=== PATIENT | male | born 1950 | race Caucasian/White ===

== ENCOUNTER 2020-04-08 23:22 | Inpatient (IN) ==
[2020-04-08] MEDS ORDERED: SODIUM CHLORIDE 0.9% 1000ML 500 ML IV ONE (23:51)
--- NOTE | 2020-04-08 23:58 | Emergency Department Note ---
Impression & Plan Sepsis, Acidosis, lactic, Hypomagnesemia ED Provider Note Name: MANDEEP TEE Age: 69 Sex: M Arrives Via: Walk-In Informant: Patient, ED Provider: Ace Hall MD Chief Complaint: Illness Impression: Sepsis Lactic Acidosis Hypomagnesemia Medical Decision Makin yr old male with DMII, CAD amongst other medical issues who recently had bilateral leg vein striping. He arrives with rapid onset fevers, chills, cough, abdominal cramping, diarrhea, amongst others. Labs with cultures sent and isolation procedures followed (pending covid results). While noting he is already feeling better he was agreeable to work-up. CXR clear, ekg unremarkable, labs with normal WBC though elevated lactate and very low mag. He was given gentle hydration with 1.5L IV fluids which was not full 30ml/kg IV fluids as he is cardiac patient already on lasix and need to avoid fluid overload in this patient. Vanco and Levaquin ordered for broad spectrum coverage (PNC allergy). He was given 2 Gm IV magnesium. Suspect chronic lasix usage along with worsening diarrhea last few days lead to hypomag, which explains how weak he is feeling. He was feeling well on repeat exams and hospitalist in to evaluate further for management. Covid returned negative. With normal CXR, clear urine. Suspect may be early bacteremic from recent procedures? Prior Medical Record and Triage/Nursing Notes reviewed by Me Additional history obtained from Chart Differentials:Viral syndrome, Covid, otitis, pharyngitis, pneumonia, influenza, meningitis, urinary tract infection, sepsis, bacteremia, as well as other pathologies. Vital Signs: reviewed and remarkable for fever, tachy Interventions: saline lock, nss bolus 1.5L bolus, levaquin 750mg IV, vanco 2.75gm IV Labs:Reviewed and remarkable for elevated lacate Imaging:X ray results are stated below per my interpretation: Chest: 1 view: No infiltrate, no effusion, normal cardiac border. EKG:Per My Interpretation: Indication Sepsis: Sinus Tach 106 bpm, qtc 458. Prolonged LA consistent with 1st av block. No Ectopy. No Ischemia. Compared to EKG 07/16/19, no significant changes. Cardiac/Tele Monitoring: Cardiac Monitoring: An Order was placed for continuous cardiac monitoring. The monitor shows a rate of 110 with a sinus tach rhythm. Consults:Dr Vincent ANDERSON Hospitalist Plan: Disposition:Hospitalization. Condition: Good Blood pressure:Normal.No Referral necessary History of Present Illness:69 / M arrives for evaluation of illness. History DMII, CAD, amongst others arrives for evaluation of feeling ill. Notes several days of mild abdominal cramping and periodica diarrhea. This evening sudden/rapid onset fevers, chills, non-productive cough, fatigue, and body aches. Notes he took tylenol/motrin at 9pm (2.5 hrs [employer]). Symptoms gradually improving currently. Denies syncope, headache, shortness of breath, chest pain, back pain, urinary symptoms, leg swelling (beyond normal), calf pain, nausea, vomiting, rashes, nor other symptoms. No sick contacts but has been in/out of docs office last few weeks for vein surgeries on legs. Meds this evening seem to be improving symptoms. Nothing seems to make worse. Chronically on Doxycycline for acne. Notes BSG over last few days has been normal in 100s. He denies any current abdominal pain. ROS: See above HPI for pertinent positives & negatives. A total of 10 systems reviewed and were otherwise negative. Past Medical History:DMII, CAD, Acne, HTN, DLP, Depression, GERD, Ascending Aortic Aneurysm Past Surgical History:Colon Surgery Family History:See Below Social History:See Below. Previous many decades smoker Home Medications:See Below Allergies:PNC Vitals:Blood Pressure: 139/77, Pulse 109, RR 18, T 38.1C, O2 96% on RA Physical Exam: GENERAL: Patient is well appearing and in mild distress. Mild warm to touch EYES: No scleral icterus, unremarkable pupils. ENT: Mucous membranes moist, no nasal congestion. NECK: No masses appreciated, nomeningismus, trachea is midline. RESPIRATORY: No dyspnea. Clear to auscultation and equal bilaterally. No wheeze, no rhonchi. CARDIOVASCULAR: Mild tachy.No murmurs, rubs, gallops appreciated. GASTROINTESTINAL: Abdomen soft, non-tender, no peritonitis.Bowel sounds positive.No masses appreciated. BACK: No midline tenderness, no CVA tenderness EXTREMITIES: Normal motion all extremities, no cyanosis, no edema. NEUROLOGIC: Alert and oriented, no acute motor or sensory deficits, no focal weakness, cranial nerves grossly intact. SKIN: No rash, no jaundice, no diaphoresis. PSYCH: Appropriate GCS: 15 ED Course: Times/Reassessments: Feeling better with IV fluids, no respiratory issues, comfortable, agreeable to hospitalization Ace Hall MD Past Med/Surg History Social History Preferred Language: Armenian Communication Ability: Effective Visual Impairment: No Limitations Hearing Ability: Normal marital status: Current Living Situation: Spouse current occupational status: retired Feels Safe at Home: Yes Smoking Status: Never smoker Tobacco Type: cigarettes, pipe and cigars ; Age Started Using Tobacco: 18 ; Age Quit Using Tobacco: 62 ; Number of Years Since Quit: 7 ; Second Hand Exposure: No ; Hx Alcohol Use: No Hx Substance Use: No Childhood Exposure to Second-Hand Smoke: Yes Dental Care, Regularly: No Physical Activity Frequency: Does not Exercise Seatbelt Use: always Sunscreen Use: No Allergies Allergies Allergy/AdvReac Type Severity Reaction Status Date / Time Penicillins Allergy Unknown Unknown Verified 04/09/20 02:31 Home Meds Home Medications Medication Instructions Recorded Confirmed aspirin 81 mg tablet,delayed 81 mg PO DAILY tab 04/30/19 04/09/20 release ferrous sulfate [Slow Fe] 142 mg PO DAILY 07/16/19 04/09/20 hydrocortisone 1 appln TOPICAL WK 07/16/19 04/09/20 insulin NPH isoph U-100 human 100 52 units SUBCUT BID ml 03/24/20 04/09/20 unit/mL subcutaneous suspension insulin regular human 100 unit/mL 20 units SUBCUT TIDM ml 03/24/20 04/09/20 injection solution nitroglycerin 0.4 mg SL DIRECTED PRN 04/09/20 04/09/20 Previous Rx's Medication Instructions Recorded irbesartan 300 mg tablet 300 mg PO DAILY #90 tab 06/24/19 clopidogrel 75 mg tablet 75 mg PO DAILY #90 tab 07/06/19 omeprazole magnesium 20 mg 20 mg PO DAILY #90 cap 07/06/19 capsule,delayed release clindamycin phosphate 1 % topical 1 appln TOP DAILY #60 gm 07/30/19 gel Compression stockings #2 ea 08/05/19 metformin 1,000 mg tablet 1,000 mg PO BID #180 tab 09/02/19 furosemide 40 mg tablet 40 mg PO BID #180 tab 09/15/19 ketoconazole 2 % shampoo 1 appln TOPICAL Q OTHER DAY #120 ml 11/16/19 atorvastatin 40 mg tablet 40 mg PO DAILY #90 tab 12/30/19 amitriptyline 50 mg tablet 75 mg PO HS #135 tab 01/13/20 doxycycline monohydrate 100 mg 100 mg PO DAILY #90 tab 02/03/20 tablet metoprolol tartrate 50 mg tablet 50 mg PO BID #180 tab 02/08/20 blood sugar diagnostic #300 ea 02/24/20 lancets 33 gauge #300 ea 02/24/20 pregabalin 50 mg capsule 50 mg PO BID #60 cap 03/24/20 isosorbide mononitrate 120 mg 60 mg PO DAILY #45 tab 04/01/20 tablet,extended release 24 hr Results & Data (ED) Vital Signs Vital Signs - 24 hr 04/08/20 23:35 04/09/20 02:13 04/09/20 03:52 Temperature 38.1 C H 38.1 C H Temperature Source Oral Oral Pulse Rate 109 H Pulse Rate [Apical] 121 H 122 H Pulse Rhythm [Apical] Regular Pulse Strength [Apical] Normal Respiratory Rate 18 18 16 Respiratory Depth Normal Blood Pressure 139/77 Blood Pressure [Right Arm] 131/66 154/69 H Blood Pressure Mean 97 Blood Pressure Mean [Right Arm] 87 97 Pulse Oximetry 96 96 96 Oxygen Delivery Method Room Air Room Air Room Air Sepsis Recent Fever Within 48 Hours No Sepsis New/Unexplained Change in Mental Status No Sepsis Action Taken by Nursing No Action Required 04/09/20 04:04 Temperature Temperature Source Pulse Rate Pulse Rate [Apical] 119 H Pulse Rhythm [Apical] Pulse Strength [Apical] Respiratory Rate 18 Respiratory Depth Blood Pressure Blood Pressure [Right Arm] 105/66 Blood Pressure Mean Blood Pressure Mean [Right Arm] 79 Pulse Oximetry 95 Oxygen Delivery Method Room Air Sepsis Recent Fever Within 48 Hours Sepsis New/Unexplained Change in Mental Status Sepsis Action Taken by Nursing Laboratory Data Result diagrams: 04/09/20 00:08 04/09/20 00:08 Lab Results 04/09/20 04/09/20 04/09/20 Range/Units 00:08 00:08 00:08 WBC 8.29 (4.8-10.8) K/uL RBC 4.51 L (4.7-6.1) M/uL Hgb 12.1 L (14.0-18.0) g/dL Hct 37.5 L (42-52) % MCV 83.1 (80-100) fL MCH 26.8 (25-34) pg MCHC 32.3 (32-36) g/dL RDW Std Deviation 47.3 H (36.4-46.3) fL RDW Coeff of Sho 15.6 H (11.5-14.5) % Plt Count 167 (130-400) K/uL MPV 11.5 H (7.4-10.4) fL Immature Gran % (Auto) 0.4 % Neut % (Auto) 79.6 % Lymph % (Auto) 9.7 % [place] % (Auto) 8.8 % Eos % (Auto) 1.4 % Baso % (Auto) 0.1 % Neut # (Auto) 6.60 H (1.4-6.5) K/uL Lymph # (Auto) 0.80 L (1.2-3.4) K/uL [place] # (Auto) 0.73 H (0.11-0.59) K/uL Eos # (Auto) 0.12 (0-0.5) K/uL Baso # (Auto) 0.01 (0-0.2) K/uL Immature Gran # (Auto) 0.03 H (0.00-0.02) K/uL PT 12.2 H (9.0-12.0) Seconds INR 1.2 H (0.9-1.1) Sodium (136-145) mmol/L Potassium (3.5-5.1) mmol/L Chloride (98-107) mmol/L Carbon Dioxide (21-32) mmol/L Anion Gap (3-11) BUN (7-18) mg/dl Creatinine (0.6-1.4) mg/dl Est Cr Clr Drug Dosing ml/min Est GFR ( Amer) Est GFR (Non-Af Amer) BUN/Creatinine Ratio (10-20) Glucose (70-99) mg/dl Lactate 2.6 H* (0.4-2.0) mmol/L Calcium (8.5-10.1) mg/dl Magnesium (1.8-2.4) mg/dl Total Bilirubin (0.2-1) mg/dl Direct Bilirubin (0-0.2) mg/dl AST (15-37) U/L ALT (12-78) U/L Alkaline Phosphatase (45-117) U/L Troponin I (0-0.045) ng/ml Total Protein (6.4-8.2) gm/dl Albumin (3.4-5.0) gm/dl Lipase (73-393) U/L COVID-19 PCR (Negative) SARS-CoV-2 RNA (RT-PCR) 04/09/20 04/09/20 04/09/20 Range/Units 00:08 01:30 01:55 WBC (4.8-10.8) K/uL RBC (4.7-6.1) M/uL Hgb (14.0-18.0) g/dL Hct (42-52) % MCV (80-100) fL MCH (25-34) pg MCHC (32-36) g/dL RDW Std Deviation (36.4-46.3) fL RDW Coeff of Sho (11.5-14.5) % Plt Count (130-400) K/uL MPV (7.4-10.4) fL Immature Gran % (Auto) % Neut % (Auto) % Lymph % (Auto) % [place] % (Auto) % Eos % (Auto) % Baso % (Auto) % Neut # (Auto) (1.4-6.5) K/uL Lymph # (Auto) (1.2-3.4) K/uL [place] # (Auto) (0.11-0.59) K/uL Eos # (Auto) (0-0.5) K/uL Baso # (Auto) (0-0.2) K/uL Immature Gran # (Auto) (0.00-0.02) K/uL PT (9.0-12.0) Seconds INR (0.9-1.1) Sodium 136 (136-145) mmol/L Potassium 3.8 (3.5-5.1) mmol/L Chloride 103 (98-107) mmol/L Carbon Dioxide 23 (21-32) mmol/L Anion Gap 10.0 (3-11) BUN 17 (7-18) mg/dl Creatinine 1.60 H (0.6-1.4) mg/dl Est Cr Clr Drug Dosing 63.3 ml/min Est GFR ( Amer) 50.6 Est GFR (Non-Af Amer) 43.6 BUN/Creatinine Ratio 10.9 (10-20) Glucose 175 H (70-99) mg/dl Lactate (0.4-2.0) mmol/L Calcium 9.2 (8.5-10.1) mg/dl Magnesium 0.9 L* (1.8-2.4) mg/dl Total Bilirubin 1.1 H (0.2-1) mg/dl Direct Bilirubin 0.2 (0-0.2) mg/dl AST 36 (15-37) U/L ALT 26 (12-78) U/L Alkaline Phosphatase 156 H (45-117) U/L Troponin I < 0.015 (0-0.045) ng/ml Total Protein 8.1 (6.4-8.2) gm/dl Albumin 4.0 (3.4-5.0) gm/dl Lipase 134 (73-393) U/L COVID-19 PCR NEGATIVE (Negative) SARS-CoV-2 RNA (RT-PCR) Cancelled 04/09/20 Range/Units 02:50 WBC (4.8-10.8) K/uL RBC (4.7-6.1) M/uL Hgb (14.0-18.0) g/dL Hct (42-52) % MCV (80-100) fL MCH (25-34) pg MCHC (32-36) g/dL RDW Std Deviation (36.4-46.3) fL RDW Coeff of Sho (11.5-14.5) % Plt Count (130-400) K/uL MPV (7.4-10.4) fL Immature Gran % (Auto) % Neut % (Auto) % Lymph % (Auto) % [place] % (Auto) % Eos % (Auto) % Baso % (Auto) % Neut # (Auto) (1.4-6.5) K/uL Lymph # (Auto) (1.2-3.4) K/uL [place] # (Auto) (0.11-0.59) K/uL Eos # (Auto) (0-0.5) K/uL Baso # (Auto) (0-0.2) K/uL Immature Gran # (Auto) (0.00-0.02) K/uL PT (9.0-12.0) Seconds INR (0.9-1.1) Sodium (136-145) mmol/L Potassium (3.5-5.1) mmol/L Chloride (98-107) mmol/L Carbon Dioxide (21-32) mmol/L Anion Gap (3-11) BUN (7-18) mg/dl Creatinine (0.6-1.4) mg/dl Est Cr Clr Drug Dosing ml/min Est GFR ( Amer) Est GFR (Non-Af Amer) BUN/Creatinine Ratio (10-20) Glucose (70-99) mg/dl Lactate 2.8 H* (0.4-2.0) mmol/L Calcium (8.5-10.1) mg/dl Magnesium (1.8-2.4) mg/dl Total Bilirubin (0.2-1) mg/dl Direct Bilirubin (0-0.2) mg/dl AST (15-37) U/L ALT (12-78) U/L Alkaline Phosphatase (45-117) U/L Troponin I (0-0.045) ng/ml Total Protein (6.4-8.2) gm/dl Albumin (3.4-5.0) gm/dl Lipase (73-393) U/L COVID-19 PCR (Negative) SARS-CoV-2 RNA (RT-PCR) Administered Medications Discontinued Medications Sodium Chloride (Nss 1000ml) 500 mls @ 999 mls/hr IV .Q31M ONE Stop: 04/09/20 00:21 Last Infusion: 04/09/20 01:07 Dose: 0 mls/hr Documented by: [id number] Admin: 04/09/20 00:22 Dose: 999 mls/hr Documented by: [id number] Sodium Chloride (Nss 1000ml) 1,000 mls @ 999 mls/hr IV .Q1H1M ONE Stop: 04/09/20 02:33 Last Infusion: 04/09/20 03:53 Dose: 0 mls/hr Documented by: [id number] Admin: 04/09/20 02:15 Dose: 999 mls/hr Documented by: [id number] Magnesium Sulfate/Dextrose (Magnesium Sulfate / D5w) 1 gm in 100 mls @ 100 mls/hr IV Q1H JANIE Stop: 04/09/20 03:33 Last Admin: 04/09/20 03:13 Dose: 100 mls/hr Documented by: [id number] Infusion: 04/09/20 03:13 Dose: 100 mls/hr Documented by: [id number] Admin: 04/09/20 02:13 Dose: 100 mls/hr Documented by: [id number] Levofloxacin/Dextrose (Levaquin/D5w) 750 mg in 150 mls @ 100 mls/hr IV NOW STA Stop: 04/09/20 03:02 Last Admin: 04/09/20 03:59 Dose: 100 mls/hr Documented by: [id number] Discharge Plan Visit Data Chief Complaint: Illness Stated Complaint: FEVER/CHILLS,DIARRHEA,NAUSEA,HEADACHE,ABD PAIN ED Provider: Ace Hall Discharge Problem: Sepsis, Acidosis, lactic, Hypomagnesemia Forms Stand Alone Forms: [facility] Prescriptions Prescriptions: No Action irbesartan 300 mg tablet 300 mg PO DAILY Qty: 90 RF: 3 clopidogrel 75 mg tablet 75 mg PO DAILY Qty: 90 RF: 2 omeprazole magnesium [Acid Dust Sampler (omeprazole)] 20 mg capsule,delayed release(DR/EC) 20 mg PO DAILY Qty: 90 RF: 3 clindamycin phosphate 1 % gel 1 appln TOP DAILY Qty: 60 RF: 1 (DME) Compression stockings Qty: 2 RF: 0 metformin 1,000 mg tablet 1,000 mg PO BID Qty: 180 RF: 3 furosemide 40 mg tablet 40 mg PO BID Qty: 180 RF: 1 ketoconazole 2 % shampoo 1 appln topical Q OTHER DAY Qty: 120 RF: 3 atorvastatin 40 mg tablet 40 mg PO DAILY Qty: 90 RF: 3 amitriptyline 50 mg tablet 75 mg PO HS Qty: 135 RF: 1 doxycycline monohydrate 100 mg tablet 100 mg PO DAILY Qty: 90 RF: 0 metoprolol tartrate 50 mg tablet 50 mg PO BID Qty: 180 RF: 3 (DME) OneTouch Ultra Blue Test Strip Strip See Dose Instructions .ROUTE .MEDSUPPLY Qty: 300 RF: 1 (DME) lancets [OneTouch Delica Lancets] 33 gauge misc See Rx Instructions .ROUTE .MEDSUPPLY Qty: 300 RF: 1 isosorbide mononitrate 120 mg tablet extended release 24 hr 60 mg PO DAILY Qty: 45 RF: 3 aspirin 81 mg tablet,delayed release (DR/EC) 81 mg PO DAILY RF: 0 insulin NPH isoph U-100 human 100 unit/mL suspension 52 units subcut BID RF: 0 Novolin R Regular U-100 Insuln 100 unit/mL solution 20 units SUBCUT TIDM RF: 0 pregabalin 50 mg capsule 50 mg PO BID Qty: 60 RF: 2 hydrocortisone 2.5 % cream 1 appln topical WK RF: 0 Slow Fe 142 mg (45 mg iron) Tablet Extended Release 142 mg PO DAILY RF: 0 nitroglycerin 0.4 mg tablet, sublingual 0.4 mg SL DIRECTED PRN (Reason: Chest Pain) RF: 0 Discharge Problem: Sepsis Qualifiers: Sepsis type: sepsis due to unspecified organism Sepsis acute organ dysfunction status: without acute organ dysfunction Qualified Code(s): A41.9 - Sepsis, unspecified organism
[2020-04-09 00:30] LABS: Basophils # (auto) 0.01 K/uL (0-0.2); Basophils % (auto) 0.1 %; Eosinophils # (auto) 0.12 K/uL (0-0.5); Eosinophils % (auto) 1.4 %; Hematocrit (blood only) 37.5 % (42-52); Hemoglobin 12.1 g/dL (14.0-18.0); Immature Granulocytes # (auto) 0.03 K/uL (0.00-0.02); Immature Granulocytes % (auto) 0.4 %; Lymphocytes % (auto) 9.7 %; Mean Corpuscular Hemoglobin 26.8 pg (25-34); Mean Corpuscular Hgb Conc 32.3 g/dL (32-36); Mean Corpuscular Volume 83.1 fL (80-100); Mean Platelet Volume 11.5 fL (7.4-10.4); Monocytes # (auto) 0.73 K/uL (0.11-0.59); Monocytes % (auto) 8.8 %; Neutrophils % (auto) 79.6 %; Platelet Count 167 K/uL (130-400); RDW Coefficient of Variation 15.6 % (11.5-14.5); RDW Standard Deviation 47.3 fL (36.4-46.3); Red Blood Count 4.51 M/uL (4.7-6.1); White Blood Count 8.29 K/uL (4.8-10.8)
[2020-04-09 00:42] LABS: INR 1.2 (0.9-1.1); Prothrombin Time 12.2 Seconds (9.0-12.0)
[2020-04-09 01:24] LABS: Alanine Aminotransferase 26 U/L (12-78); Alkaline Phosphatase 156 U/L (45-117); Aspartate Aminotransferase 36 U/L (15-37); BUN Creatinine Ratio 10.9 (10-20); Bilirubin Direct 0.2 mg/dl (0-0.2); Bilirubin,Total 1.1 mg/dl (0.2-1); Blood Urea Nitrogen 17 mg/dl (7-18); Calcium 9.2 mg/dl (8.5-10.1); Carbon Dioxide 23 mmol/L (21-32); Chloride 103 mmol/L (98-107); Creatinine Clr Calc Pharmacy 63.3 ml/min; Est GFR (African American) 50.6; Est GFR (Non-African American) 43.6; Glucose 175 mg/dl (70-99); Lipase 134 U/L (73-393); Magnesium 0.9 mg/dl (1.8-2.4); Potassium 3.8 mmol/L (3.5-5.1); Sodium 136 mmol/L (136-145); Total Protein 8.1 gm/dl (6.4-8.2); Troponin I < 0.015 ng/ml (0-0.045)
[2020-04-09] MEDS ORDERED: LEVOFLOXACIN/D5W 750 MG/150 ML BAG IV STA (01:33)
[2020-04-09] MEDS ORDERED: SODIUM CHLORIDE 0.9% 1000ML 1,000 ML IV ONE (01:33)
[2020-04-09] MEDS ORDERED: VANCOMYCIN CONSULT ACTIVE PRN ×2 (01:33→05:16)
[2020-04-09] MEDS ORDERED: VANCOMYCIN HCL 2,750 MG in SODIUM CHLORIDE 0.9% 500 ML IV ONE (01:33)
[2020-04-09] MEDS: MAGNESIUM SULFATE / D5W 1 GM/100 ML BAG IV SCH ×6 (02:13→11:38)
[2020-04-09] MEDS ORDERED: GLUCOSE 40% GEL 15 GM TUBE PO PRN (05:16)
[2020-04-09] MEDS ORDERED: DEXTROSE 50% 50 ML SYRINGE IV PRN (05:16)
[2020-04-09] MEDS ORDERED: ONDANSETRON INJ 2 MG/ML 2 ML VIAL IV PRN (05:16)
[2020-04-09] MEDS ORDERED: VANCOMYCIN HCL 1,000 MG in SODIUM CHLORIDE 0.9% 250 ML IV SCH (05:16)
[2020-04-09] MEDS ORDERED: GLUCAGON FOR INJ 1 MG VIAL SQ PRN (05:16)
[2020-04-09] MEDS ORDERED: CARBOHYDRATES FOR HYPOGLYCEMIA PO PRN (05:16)
[2020-04-09] MEDS ORDERED: GLUCOSE 10 TABS/TUBE PO PRN (05:16)
[2020-04-09] MEDS ORDERED: PHARMACY GLYCEMIC MGMT CONSULT PRN (05:34)
--- NOTE | 2020-04-09 06:35 | History & Physical Report ---
Date of Service April 09, 2020 Assessment & Plan (1) Sepsis: Patient febrile, tachycardic, elevated lactate. Source of infection unclear. Covid-19 testing performed in ER and negative. ?Bacteremia given acute onset of symptoms -Follow culture results -Empiric antibiotic coverage with Vancomycin and Aztreonam (patient is PCN allergic) -Continue IVF Present on Admission?: Yes (2) Acidosis, lactic: Elevated lactate. Patient febrile, tachycardic, BP is stable. On Metformin. -IVF, treatment of sepsis as above -Repeat lactate Present on Admission?: Yes (3) Hypomagnesemia: Magnesium = 0.9 -Replete, Mg 1gm IV x 4 -Repeat level in AM Present on Admission?: Yes (4) Coronary artery disease: History of CAD. Presently with no CP. -Continue ASA, Plavix, Atorvastatin and Metoprolol Present on Admission?: Yes (5) Type 2 diabetes mellitus with peripheral neuropathy: Elevated blood sugar today. Poorly controlled DM, last HgbA1C ON 03/23/20 = 9.8 -Hold Metformin -Lantus, ISS -Glycemic management consultation Present on Admission?: Yes (6) GERD without esophagitis: Chronic. Stable -Continue Omeprazole Present on Admission?: Yes (7) Hypertension: Blood pressure stable at present -Hold antihypertensives for now in setting of sepsis -Holding Isosorbide, Irbesartan -Continue Metoprolol -Closely monitor BP Present on Admission?: Yes (8) Dyslipidemia: Chronic. -Continue Atorvastatin 40mg po daily F/E/N - IVF with NSS at 80mL/hr x 2 liters , replete Mg as above, Heart Healthy/CC diet as tolerated Ppx - Continue Protonix 40mg po daily Code - Full. CPAP qHS at 10 Dispo - Admit to PCU Present on Admission?: Yes Admission and Anticipated Discharge Date Admission Date: April 09, 2020 Anticipated date of discharge: 04/11/20 History of Present Illness Chief Complaint: illness Primary Care Provider: Zbigniew Bennett DO Mr. Lerner is a 69yo C male with history of CAD, DM, GERD, HTN and HLP. Patient had recent US guided sclerotherapy performed on 04/06/[address] Botello. Last evening around 20:00 patient acutely developed fevers/chills, rigors, body aches, fatigue as well as abdominal cramping, nausea and diarrhea. Patient took Tylenol and Motrin for his symptoms. reports that patient became confused prior to arrival to the ER. On arrival to the ER patient was febrile, tachycardic. Covid-19 test performed and negative Allergies Allergy/AdvReac Type Severity Reaction Status Date / Time Penicillins Allergy Unknown Unknown Verified 04/09/20 02:31 Home Medications Home Medications Medication Instructions Recorded Confirmed Type aspirin 81 mg tablet,delayed 81 mg PO DAILY tab 04/30/19 04/09/20 History release irbesartan 300 mg tablet 300 mg PO DAILY #90 tab 06/24/19 04/09/20 Rx clopidogrel 75 mg tablet 75 mg PO DAILY #90 tab 07/06/19 04/09/20 Rx omeprazole magnesium 20 mg 20 mg PO DAILY #90 cap 07/06/19 04/09/20 Rx capsule,delayed release ferrous sulfate [Slow Fe] 142 mg PO DAILY 07/16/19 04/09/20 History hydrocortisone 1 appln TOPICAL WK 07/16/19 04/09/20 History clindamycin phosphate 1 % topical 1 appln TOP DAILY #60 gm 07/30/19 04/09/20 Rx gel Compression stockings #2 ea 08/05/19 01/19/20 Rx metformin 1,000 mg tablet 1,000 mg PO BID #180 tab 09/02/19 04/09/20 Rx furosemide 40 mg tablet 40 mg PO BID #180 tab 09/15/19 04/09/20 Rx ketoconazole 2 % shampoo 1 appln TOPICAL Q OTHER DAY #120 ml 11/16/19 04/09/20 Rx atorvastatin 40 mg tablet 40 mg PO DAILY #90 tab 12/30/19 04/09/20 Rx amitriptyline 50 mg tablet 75 mg PO HS #135 tab 01/13/20 04/09/20 Rx doxycycline monohydrate 100 mg 100 mg PO DAILY #90 tab 02/03/20 04/09/20 Rx tablet metoprolol tartrate 50 mg tablet 50 mg PO BID #180 tab 02/08/20 04/09/20 Rx blood sugar diagnostic #300 ea 02/24/20 03/24/20 Rx lancets 33 gauge #300 ea 02/24/20 03/24/20 Rx insulin NPH isoph U-100 human 100 52 units SUBCUT BID ml 03/24/20 04/09/20 History unit/mL subcutaneous suspension insulin regular human 100 unit/mL 20 units SUBCUT TIDM ml 03/24/20 04/09/20 History injection solution pregabalin 50 mg capsule 50 mg PO BID #60 cap 03/24/20 04/09/20 Rx isosorbide mononitrate 120 mg 60 mg PO DAILY #45 tab 04/01/20 04/09/20 Rx tablet,extended release 24 hr nitroglycerin 0.4 mg SL DIRECTED PRN 04/09/20 04/09/20 History Past Med/Surg History Social History Preferred Language: Green[place]ic Communication Ability: Effective Visual Impairment: No Limitations Hearing Ability: Normal Beliefs That Will Affect Care: None marital status: Current Living Situation: Spouse current occupational status: retired Feels Safe at Home: Yes Safety Concerns: Feels Safe At This Time Smoking Status: Never smoker Tobacco Type: cigarettes, pipe and cigars ; Age Started Using Tobacco: 18 ; Age Quit Using Tobacco: 62 ; Number of Years Since Quit: 7 ; Second Hand Exposure: No ; Hx Alcohol Use: No Hx Substance Use: No Childhood Exposure to Second-Hand Smoke: Yes Dental Care, Regularly: No Physical Activity Frequency: Does not Exercise Seatbelt Use: always Sunscreen Use: No Review of Systems Review of Systems: All systems reviewed & are unremarkable except as noted in HPI & below Physical Exam Physical Exam: General: patient resting comfortably, mildly shaking, NAD, ill in appearance, AA&O x 4 Skin: warm, dry, intact HEENT: NC/AT, PERRL, EOMI, anicteric sclera, conjunctiva without injection, external ear normal to inspection and nontender, nares patent, moist mucus membranes, dentition intact, no oropharyngeal lesions, neck supple, trachea midline, no LAD, no thyromegaly, no JVD Heart: +S1/S2, regular, no m/r/g Lungs: equal air entry bilaterally, no rales/rhonchi/wheezes Abd: +BS, soft, NT/ND, no masses/organomegaly/ascites Ext: warm, 2+ pulses in UE/LE bilaterally, bilateral compression stockings in place Neuro: nonfocal, patient AA&O x 4, speech intact, no facial droop, moving all extremities on command with equal strength 5/5 Results & Data Results & Data ([facility]) Vital Signs (Past 12 Hours) Vital Signs Temp Pulse Pulse Resp BP BP Pulse Ox 04/09/20 05:18 36.9 C 112 H 20 159/76 H 94 04/09/20 05:07 108 H 18 119/65 94 04/09/20 04:04 119 H 18 105/66 95 04/09/20 03:52 38.1 C H 122 H 16 154/69 H 96 04/09/20 02:13 121 H 18 131/66 96 04/08/20 23:35 38.1 C H 109 H 18 139/77 96 Laboratory Results Lab Results 04/09/20 04/09/20 04/09/20 Range/Units 00:08 00:08 00:08 WBC 8.29 (4.8-10.8) K/uL RBC 4.51 L (4.7-6.1) M/uL Hgb 12.1 L (14.0-18.0) g/dL Hct 37.5 L (42-52) % MCV 83.1 (80-100) fL MCH 26.8 (25-34) pg MCHC 32.3 (32-36) g/dL RDW Std Deviation 47.3 H (36.4-46.3) fL RDW Coeff of Sho 15.6 H (11.5-14.5) % Plt Count 167 (130-400) K/uL MPV 11.5 H (7.4-10.4) fL Immature Gran % (Auto) 0.4 % Neut % (Auto) 79.6 % Lymph % (Auto) 9.7 % [place] % (Auto) 8.8 % Eos % (Auto) 1.4 % Baso % (Auto) 0.1 % Neut # (Auto) 6.60 H (1.4-6.5) K/uL Lymph # (Auto) 0.80 L (1.2-3.4) K/uL [place] # (Auto) 0.73 H (0.11-0.59) K/uL Eos # (Auto) 0.12 (0-0.5) K/uL Baso # (Auto) 0.01 (0-0.2) K/uL Immature Gran # (Auto) 0.03 H (0.00-0.02) K/uL Absolute Nucleated RBC (0-0) K/uL Nucleated RBC % (auto) % PT 12.2 H (9.0-12.0) Seconds INR 1.2 H (0.9-1.1) Sodium (136-145) mmol/L Potassium (3.5-5.1) mmol/L Chloride (98-107) mmol/L Carbon Dioxide (21-32) mmol/L Anion Gap (3-11) BUN (7-18) mg/dl Creatinine (0.6-1.4) mg/dl Est Cr Clr Drug Dosing ml/min Est GFR ( Amer) Est GFR (Non-Af Amer) BUN/Creatinine Ratio (10-20) Glucose (70-99) mg/dl POC Glucose (70-99) mg/dl Lactate 2.6 H* (0.4-2.0) mmol/L Calcium (8.5-10.1) mg/dl Phosphorus (2.5-4.9) mg/dl Magnesium (1.8-2.4) mg/dl Total Bilirubin (0.2-1) mg/dl Direct Bilirubin (0-0.2) mg/dl AST (15-37) U/L ALT (12-78) U/L Alkaline Phosphatase (45-117) U/L Troponin I (0-0.045) ng/ml Total Protein (6.4-8.2) gm/dl Albumin (3.4-5.0) gm/dl Lipase (73-393) U/L Urine Color Urine Appearance (Clear) Urine pH (4.5-7.5) Ur Specific [place] (1.000-1.030) Urine Protein (Negative) Urine Glucose (UA) (Negative) Urine Ketones (Negative) Urine Blood (Negative) Urine Nitrite (Negative) Urine Bilirubin (Negative) Urine Urobilinogen (Negative) Ur Leukocyte Esterase (Negative) COVID-19 PCR (Negative) Hepatitis C Ab Screen (Neg) SARS-CoV-2 RNA (RT-PCR) 04/09/20 04/09/20 04/09/20 Range/Units 00:08 01:30 01:55 WBC (4.8-10.8) K/uL RBC (4.7-6.1) M/uL Hgb (14.0-18.0) g/dL Hct (42-52) % MCV (80-100) fL MCH (25-34) pg MCHC (32-36) g/dL RDW Std Deviation (36.4-46.3) fL RDW Coeff of Sho (11.5-14.5) % Plt Count (130-400) K/uL MPV (7.4-10.4) fL Immature Gran % (Auto) % Neut % (Auto) % Lymph % (Auto) % [place] % (Auto) % Eos % (Auto) % Baso % (Auto) % Neut # (Auto) (1.4-6.5) K/uL Lymph # (Auto) (1.2-3.4) K/uL [place] # (Auto) (0.11-0.59) K/uL Eos # (Auto) (0-0.5) K/uL Baso # (Auto) (0-0.2) K/uL Immature Gran # (Auto) (0.00-0.02) K/uL Absolute Nucleated RBC (0-0) K/uL Nucleated RBC % (auto) % PT (9.0-12.0) Seconds INR (0.9-1.1) Sodium 136 (136-145) mmol/L Potassium 3.8 (3.5-5.1) mmol/L Chloride 103 (98-107) mmol/L Carbon Dioxide 23 (21-32) mmol/L Anion Gap 10.0 (3-11) BUN 17 (7-18) mg/dl Creatinine 1.60 H (0.6-1.4) mg/dl Est Cr Clr Drug Dosing 63.3 ml/min Est GFR ( Amer) 50.6 Est GFR (Non-Af Amer) 43.6 BUN/Creatinine Ratio 10.9 (10-20) Glucose 175 H (70-99) mg/dl POC Glucose (70-99) mg/dl Lactate (0.4-2.0) mmol/L Calcium 9.2 (8.5-10.1) mg/dl Phosphorus (2.5-4.9) mg/dl Magnesium 0.9 L* (1.8-2.4) mg/dl Total Bilirubin 1.1 H (0.2-1) mg/dl Direct Bilirubin 0.2 (0-0.2) mg/dl AST 36 (15-37) U/L ALT 26 (12-78) U/L Alkaline Phosphatase 156 H (45-117) U/L Troponin I < 0.015 (0-0.045) ng/ml Total Protein 8.1 (6.4-8.2) gm/dl Albumin 4.0 (3.4-5.0) gm/dl Lipase 134 (73-393) U/L Urine Color Urine Appearance (Clear) Urine pH (4.5-7.5) Ur Specific [place] (1.000-1.030) Urine Protein (Negative) Urine Glucose (UA) (Negative) Urine Ketones (Negative) Urine Blood (Negative) Urine Nitrite (Negative) Urine Bilirubin (Negative) Urine Urobilinogen (Negative) Ur Leukocyte Esterase (Negative) COVID-19 PCR NEGATIVE (Negative) Hepatitis C Ab Screen (Neg) SARS-CoV-2 RNA (RT-PCR) Cancelled 04/09/20 04/09/20 04/09/20 Range/Units 02:50 06:01 06:01 WBC (4.8-10.8) K/uL RBC (4.7-6.1) M/uL Hgb (14.0-18.0) g/dL Hct (42-52) % MCV (80-100) fL MCH (25-34) pg MCHC (32-36) g/dL RDW Std Deviation (36.4-46.3) fL RDW Coeff of Sho (11.5-14.5) % Plt Count (130-400) K/uL MPV (7.4-10.4) fL Immature Gran % (Auto) % Neut % (Auto) % Lymph % (Auto) % [place] % (Auto) % Eos % (Auto) % Baso % (Auto) % Neut # (Auto) (1.4-6.5) K/uL Lymph # (Auto) (1.2-3.4) K/uL [place] # (Auto) (0.11-0.59) K/uL Eos # (Auto) (0-0.5) K/uL Baso # (Auto) (0-0.2) K/uL Immature Gran # (Auto) (0.00-0.02) K/uL Absolute Nucleated RBC (0-0) K/uL Nucleated RBC % (auto) % PT (9.0-12.0) Seconds INR (0.9-1.1) Sodium 140 (136-145) mmol/L Potassium 3.7 (3.5-5.1) mmol/L Chloride 106 (98-107) mmol/L Carbon Dioxide 25 (21-32) mmol/L Anion Gap 9.0 (3-11) BUN 21 H (7-18) mg/dl Creatinine 1.70 H (0.6-1.4) mg/dl Est Cr Clr Drug Dosing 59.8 ml/min Est GFR ( Amer) 47.0 Est GFR (Non-Af Amer) 40.5 BUN/Creatinine Ratio 12.4 (10-20) Glucose 182 H (70-99) mg/dl POC Glucose (70-99) mg/dl Lactate 2.8 H* (0.4-2.0) mmol/L Calcium 8.2 L (8.5-10.1) mg/dl Phosphorus (2.5-4.9) mg/dl Magnesium (1.8-2.4) mg/dl Total Bilirubin (0.2-1) mg/dl Direct Bilirubin (0-0.2) mg/dl AST (15-37) U/L ALT (12-78) U/L Alkaline Phosphatase (45-117) U/L Troponin I (0-0.045) ng/ml Total Protein (6.4-8.2) gm/dl Albumin (3.4-5.0) gm/dl Lipase (73-393) U/L Urine Color Urine Appearance (Clear) Urine pH (4.5-7.5) Ur Specific [place] (1.000-1.030) Urine Protein (Negative) Urine Glucose (UA) (Negative) Urine Ketones (Negative) Urine Blood (Negative) Urine Nitrite (Negative) Urine Bilirubin (Negative) Urine Urobilinogen (Negative) Ur Leukocyte Esterase (Negative) COVID-19 PCR (Negative) Hepatitis C Ab Screen Neg (Neg) SARS-CoV-2 RNA (RT-PCR) 04/09/20 04/09/20 04/09/20 Range/Units 06:30 07:07 11:27 WBC (4.8-10.8) K/uL RBC (4.7-6.1) M/uL Hgb (14.0-18.0) g/dL Hct (42-52) % MCV (80-100) fL MCH (25-34) pg MCHC (32-36) g/dL RDW Std Deviation (36.4-46.3) fL RDW Coeff of Sho (11.5-14.5) % Plt Count (130-400) K/uL MPV (7.4-10.4) fL Immature Gran % (Auto) % Neut % (Auto) % Lymph % (Auto) % [place] % (Auto) % Eos % (Auto) % Baso % (Auto) % Neut # (Auto) (1.4-6.5) K/uL Lymph # (Auto) (1.2-3.4) K/uL [place] # (Auto) (0.11-0.59) K/uL Eos # (Auto) (0-0.5) K/uL Baso # (Auto) (0-0.2) K/uL Immature Gran # (Auto) (0.00-0.02) K/uL Absolute Nucleated RBC (0-0) K/uL Nucleated RBC % (auto) % PT (9.0-12.0) Seconds INR (0.9-1.1) Sodium (136-145) mmol/L Potassium (3.5-5.1) mmol/L Chloride (98-107) mmol/L Carbon Dioxide (21-32) mmol/L Anion Gap (3-11) BUN (7-18) mg/dl Creatinine (0.6-1.4) mg/dl Est Cr Clr Drug Dosing ml/min Est GFR ( Amer) Est GFR (Non-Af Amer) BUN/Creatinine Ratio (10-20) Glucose (70-99) mg/dl POC Glucose 209 H 134 H (70-99) mg/dl Lactate (0.4-2.0) mmol/L Calcium (8.5-10.1) mg/dl Phosphorus (2.5-4.9) mg/dl Magnesium (1.8-2.4) mg/dl Total Bilirubin (0.2-1) mg/dl Direct Bilirubin (0-0.2) mg/dl AST (15-37) U/L ALT (12-78) U/L Alkaline Phosphatase (45-117) U/L Troponin I (0-0.045) ng/ml Total Protein (6.4-8.2) gm/dl Albumin (3.4-5.0) gm/dl Lipase (73-393) U/L Urine Color Yellow Urine Appearance Clear (Clear) Urine pH 5.0 (4.5-7.5) Ur Specific [place] 1.021 (1.000-1.030) Urine Protein Negative (Negative) Urine Glucose (UA) Negative (Negative) Urine Ketones Negative (Negative) Urine Blood Negative (Negative) Urine Nitrite Negative (Negative) Urine Bilirubin Negative (Negative) Urine Urobilinogen Negative (Negative) Ur Leukocyte Esterase Negative (Negative) COVID-19 PCR (Negative) Hepatitis C Ab Screen (Neg) SARS-CoV-2 RNA (RT-PCR) 04/09/20 04/09/20 04/09/20 Range/Units 13:03 13:03 13:03 WBC 8.09 (4.8-10.8) K/uL RBC 4.17 L (4.7-6.1) M/uL Hgb 11.1 L (14.0-18.0) g/dL Hct 35.0 L (42-52) % MCV 83.9 (80-100) fL MCH 26.6 (25-34) pg MCHC 31.7 L (32-36) g/dL RDW Std Deviation 48.2 H (36.4-46.3) fL RDW Coeff of Sho 15.9 H (11.5-14.5) % Plt Count 154 (130-400) K/uL MPV 11.2 H (7.4-10.4) fL Immature Gran % (Auto) 0.4 % Neut % (Auto) 83.0 % Lymph % (Auto) 9.3 % [place] % (Auto) 6.9 % Eos % (Auto) 0.2 % Baso % (Auto) 0.2 % Neut # (Auto) 6.71 H (1.4-6.5) K/uL Lymph # (Auto) 0.75 L (1.2-3.4) K/uL [place] # (Auto) 0.56 (0.11-0.59) K/uL Eos # (Auto) 0.02 (0-0.5) K/uL Baso # (Auto) 0.02 (0-0.2) K/uL Immature Gran # (Auto) 0.03 H (0.00-0.02) K/uL Absolute Nucleated RBC 0.02 H (0-0) K/uL Nucleated RBC % (auto) 0.2 % PT (9.0-12.0) Seconds INR (0.9-1.1) Sodium 137 (136-145) mmol/L Potassium 3.9 (3.5-5.1) mmol/L Chloride 104 (98-107) mmol/L Carbon Dioxide 23 (21-32) mmol/L Anion Gap 10.0 (3-11) BUN 21 H (7-18) mg/dl Creatinine 1.77 H (0.6-1.4) mg/dl Est Cr Clr Drug Dosing 57.4 ml/min Est GFR ( Amer) 44.7 Est GFR (Non-Af Amer) 38.6 BUN/Creatinine Ratio 12.1 (10-20) Glucose 124 H (70-99) mg/dl POC Glucose (70-99) mg/dl Lactate 2.3 H* (0.4-2.0) mmol/L Calcium 8.4 L (8.5-10.1) mg/dl Phosphorus 1.8 L (2.5-4.9) mg/dl Magnesium 2.1 (1.8-2.4) mg/dl Total Bilirubin (0.2-1) mg/dl Direct Bilirubin (0-0.2) mg/dl AST (15-37) U/L ALT (12-78) U/L Alkaline Phosphatase (45-117) U/L Troponin I (0-0.045) ng/ml Total Protein (6.4-8.2) gm/dl Albumin (3.4-5.0) gm/dl Lipase (73-393) U/L Urine Color Urine Appearance (Clear) Urine pH (4.5-7.5) Ur Specific [place] (1.000-1.030) Urine Protein (Negative) Urine Glucose (UA) (Negative) Urine Ketones (Negative) Urine Blood (Negative) Urine Nitrite (Negative) Urine Bilirubin (Negative) Urine Urobilinogen (Negative) Ur Leukocyte Esterase (Negative) COVID-19 PCR (Negative) Hepatitis C Ab Screen (Neg) SARS-CoV-2 RNA (RT-PCR) 04/09/20 04/09/20 Range/Units 16:21 20:20 WBC (4.8-10.8) K/uL RBC (4.7-6.1) M/uL Hgb (14.0-18.0) g/dL Hct (42-52) % MCV (80-100) fL MCH (25-34) pg MCHC (32-36) g/dL RDW Std Deviation (36.4-46.3) fL RDW Coeff of Sho (11.5-14.5) % Plt Count (130-400) K/uL MPV (7.4-10.4) fL Immature Gran % (Auto) % Neut % (Auto) % Lymph % (Auto) % [place] % (Auto) % Eos % (Auto) % Baso % (Auto) % Neut # (Auto) (1.4-6.5) K/uL Lymph # (Auto) (1.2-3.4) K/uL [place] # (Auto) (0.11-0.59) K/uL Eos # (Auto) (0-0.5) K/uL Baso # (Auto) (0-0.2) K/uL Immature Gran # (Auto) (0.00-0.02) K/uL Absolute Nucleated RBC (0-0) K/uL Nucleated RBC % (auto) % PT (9.0-12.0) Seconds INR (0.9-1.1) Sodium (136-145) mmol/L Potassium (3.5-5.1) mmol/L Chloride (98-107) mmol/L Carbon Dioxide (21-32) mmol/L Anion Gap (3-11) BUN (7-18) mg/dl Creatinine (0.6-1.4) mg/dl Est Cr Clr Drug Dosing ml/min Est GFR ( Amer) Est GFR (Non-Af Amer) BUN/Creatinine Ratio (10-20) Glucose (70-99) mg/dl POC Glucose 106 H 125 H (70-99) mg/dl Lactate (0.4-2.0) mmol/L Calcium (8.5-10.1) mg/dl Phosphorus (2.5-4.9) mg/dl Magnesium (1.8-2.4) mg/dl Total Bilirubin (0.2-1) mg/dl Direct Bilirubin (0-0.2) mg/dl AST (15-37) U/L ALT (12-78) U/L Alkaline Phosphatase (45-117) U/L Troponin I (0-0.045) ng/ml Total Protein (6.4-8.2) gm/dl Albumin (3.4-5.0) gm/dl Lipase (73-393) U/L Urine Color Urine Appearance (Clear) Urine pH (4.5-7.5) Ur Specific [place] (1.000-1.030) Urine Protein (Negative) Urine Glucose (UA) (Negative) Urine Ketones (Negative) Urine Blood (Negative) Urine Nitrite (Negative) Urine Bilirubin (Negative) Urine Urobilinogen (Negative) Ur Leukocyte Esterase (Negative) COVID-19 PCR (Negative) Hepatitis C Ab Screen (Neg) SARS-CoV-2 RNA (RT-PCR) Diagnostic Findings XR chest 1V portable CLINICAL HISTORY: Cough, fevers, chills dyspnea COMPARISON STUDY: 07/16/2019 FINDINGS: The bones soft tissues and hemidiaphragms are normal. The cardiomediastinal silhouette is normal. The lungs are clear. The pulmonary vasculature is normal. IMPRESSION: Negative chest. ACT 112: Negative or not required by law. The above report was generated using voice recognition software. It may contain grammatical, syntax or spelling errors. Electronically signed by: Mumtaz Donnelly M.D. 04/09/2020 6:58 AM Dictated: 04/09/20 0658 Transcribed: 04/09/20 0658 Code Status & VTE Plan Code Status Full Code VTE Prophylaxis Plan VTE Prophylaxis will be ordered: Yes PG Care Time/CCT Total # of Minutes Spent Total Time Spent with Patient: Total time spent is greater than 50% in coordination of care (as documented) at patient's floor/unit and/or counseling patient: Coding Level of Care Code 99063 Initial Inpt Care Lvl 3 Diagnoses Sepsis A41.9 Sepsis acute organ dysfunction status: without acute organ dysfunction Sepsis type: sepsis due to unspecified organism Acidosis, lactic E87.2 Hypomagnesemia E83.42 Coronary artery disease I25.10 Coronary Disease-Associated Artery/Lesion type: [place] artery [place] vs. transplanted heart: [place] heart Associated angina: without angina Type 2 diabetes mellitus with peripheral neuropathy E11.42 GERD without esophagitis K21.9 Hypertension I10 Hypertension type: essential hypertension Dyslipidemia E78.5 (1) Coronary artery disease Coronary Disease-Associated Artery/Lesion type: [place] artery [place] vs. transplanted heart: [place] heart Associated angina: without angina Qualified Code(s): I25.10 - Atherosclerotic heart disease of [place] coronary artery without angina pectoris (2) Sepsis Sepsis acute organ dysfunction status: without acute organ dysfunction Sepsis type: sepsis due to unspecified organism Qualified Code(s): A41.9 - Sepsis, unspecified organism (3) Hypertension Hypertension type: essential hypertension Qualified Code(s): I10 - Essential (primary) hypertension
[2020-04-09 06:53] LABS: Appearance Urine Clear (Clear); Bilirubin Urine Negative (Negative); Blood Urine Negative (Negative); Color Urine Yellow; Glucose Urine UA Negative (Negative); Ketones Urine Negative (Negative); Leukocyte Esterase Urine Negative (Negative); Nitrite Urine Negative (Negative); Protein Urine Negative (Negative); Specific Gravity Urine 1.021 (1.000-1.030); Urobilinogen Urine Negative (Negative)
[2020-04-09 06:57] LABS: BUN Creatinine Ratio 12.4 (10-20); Calcium 8.2 mg/dl (8.5-10.1); Creatinine Clr Calc Pharmacy 59.8 ml/min; Est GFR (Non-African American) 40.5; Potassium 3.7 mmol/L (3.5-5.1)
--- NOTE | 2020-04-09 07:00 | XRay Report ---
XR chest 1V portable CLINICAL HISTORY: Cough, fevers, chills dyspnea COMPARISON STUDY: 07/16/2019 FINDINGS: The bones soft tissues and hemidiaphragms are normal. The cardiomediastinal silhouette is n ormal. The lungs are clear. The pulmonary vasculature is normal. IMPRESSION: Negative chest. ACT 112: Negative or not required by law. The above report was generated using voice recognition software. It may contain grammatical, syntax or spelling errors. Electronically signed by: Mumtaz Donnelly M.D. 04/09/2020 6:58 AM
[2020-04-09] MEDS: AZTREONAM 2,000 MG in DEXTROSE 5% 100 ML IV SCH ×3 (08:11→23:09)
[2020-04-09] MEDS: ATORVASTATIN 40 MG TAB PO SCH (08:20)
[2020-04-09] MEDS: METOPROLOL TARTRATE 50 MG TAB PO SCH (08:20)
[2020-04-09] MEDS: CLOPIDOGREL BISULFATE 75 MG TAB PO SCH (08:20)
[2020-04-09] MEDS: ASPIRIN 81 MG ECTAB PO SCH (08:20)
[2020-04-09] MEDS: INSULIN HUMAN NPH SC SCH ×2 (08:21→17:10)
[2020-04-09] MEDS: PANTOprazole 40 MG TAB PO SCH (08:21)
[2020-04-09] MEDS: KETOCONAZOLE~ORDER AWAITING ACTION SCH ×2 (08:21→16:08)
[2020-04-09] MEDS: FERROUS SULFATE 325 MG TAB PO SCH (08:21)
[2020-04-09] MEDS: PREGABALIN 50 MG CAP PO SCH ×2 (08:22→20:51)
[2020-04-09] MEDS: INSULIN ASPART 100 UNITS/ML 3 ML PEN SC SCH ×4 (08:23→20:31)
[2020-04-09] MEDS ORDERED: INSULIN GLARGINE SOLOSTAR 100 UNITS/ML 3 ML PEN SC SCH (09:00)
[2020-04-09] MEDS: SODIUM CHLORIDE 0.9% 1000ML 1,000 ML IV SCH (09:20)
[2020-04-09] MEDS: ACETAMINOPHEN 325 MG TAB PO PRN ×3 (09:51→22:38)
--- NOTE | 2020-04-09 10:01 | Pharmacy Report ---
Pharmacy Glycemic Short Note 2 - Date of Service April 09, 2020 - Glycemic Short BSG Results (Last 24 hours): 04/09/20 04/09/20 04/09/20 00:08 06:01 07:07 Glucose 175 H 182 H POC Glucose 209 H OUTPATIENT ANTIDIABETIC REGIMEN: * NPH 52 units SQ BID * Regular 20 units SQ TID * Total daily insulin dose = 164 units/day * A1c = 9.8% on 03/23/20 ASSESSMENT: * 69 yo T2DM male on Sq basal bolus insulin regimen as an outpatient with sub- optimal control per recent A1c. Goal A1c < 7% based on age/co-morbidities. * Pt took his NPH dose yesterday AM but evening dose was missed on admission; therefore, AM fasting BSG is elevated this morning. * Typically patients require less than outpatient insulin dosing d/t controlled CHO diet in house. Will continue outpatient insulin regimen at slightly lowered dosing and titrate based on BSG trends. Pt with zero CHO consumed this AM therefore dose decrease warranted. PLAN FOR INPATIENT GLYCEMIC CONTROL: * Basal insulin * NPH 33 units SQ BID * Bolus insulin * NovoLog per scale ACHS or Q6hrs while NPO * Goal Range: Low 110 mg/dL - High 140 mg/dL * Correction Factor: 10 mg/dL/unit * Nutritional / Prandial insulin per carb ratio of 1 unit per 3 grams CHO consumed
[2020-04-09 13:15] LABS: Basophils # (auto) 0.02 K/uL (0-0.2); Basophils % (auto) 0.2 %; Eosinophils # (auto) 0.02 K/uL (0-0.5); Eosinophils % (auto) 0.2 %; Hemoglobin 11.1 g/dL (14.0-18.0); Immature Granulocytes # (auto) 0.03 K/uL (0.00-0.02); Immature Granulocytes % (auto) 0.4 %; Lymphocytes # (auto) 0.75 K/uL (1.2-3.4); Lymphocytes % (auto) 9.3 %; Mean Corpuscular Hemoglobin 26.6 pg (25-34); Mean Corpuscular Hgb Conc 31.7 g/dL (32-36); Mean Corpuscular Volume 83.9 fL (80-100); Mean Platelet Volume 11.2 fL (7.4-10.4); Monocytes # (auto) 0.56 K/uL (0.11-0.59); Monocytes % (auto) 6.9 %; Neutrophils # (auto) 6.71 K/uL (1.4-6.5); Nucleated RBC # (auto) 0.02 K/uL (0-0); Nucleated RBC % (auto) 0.2 %; Platelet Count 154 K/uL (130-400); RDW Coefficient of Variation 15.9 % (11.5-14.5); RDW Standard Deviation 48.2 fL (36.4-46.3); Red Blood Count 4.17 M/uL (4.7-6.1); White Blood Count 8.09 K/uL (4.8-10.8)
[2020-04-09 13:31] LABS: BUN Creatinine Ratio 12.1 (10-20); Calcium 8.4 mg/dl (8.5-10.1); Creatinine Clr Calc Pharmacy 57.4 ml/min; Est GFR (African American) 44.7; Est GFR (Non-African American) 38.6; Magnesium 2.1 mg/dl (1.8-2.4); Phosphorus 1.8 mg/dl (2.5-4.9); Potassium 3.9 mmol/L (3.5-5.1)
[2020-04-09] MEDS ORDERED: POTASSIUM PHOS 3 MMOL/1 ML INFUSION IV STA (15:24)
--- NOTE | 2020-04-09 15:24 | Pharmacy Report ---
Pharmacy Abx Initial Consult - Date of Service April 09, 2020 - Pharmacy Dosing Scope Date of Consult: 04/09/20 Consultation requested by: Dr. Kaur Pharmacy is consulted to initiate Vancomycin IV dosing therapy, order appropriate labs and adjust drug dose/frequency. - Subjective The patient is a 69 year old M admitted on 04/09/20 02:35. - Objective Height: 6 ft 1 in Weight: 134.2 kg Vital Signs (Past 12hrs): Vital Signs Temp Pulse Pulse Pulse Resp BP BP 04/09/20 11:14 37.8 C H 88 29 H 134/65 04/09/20 07:31 37.1 C 101 H 24 144/77 H 04/09/20 05:18 36.9 C 112 H 20 159/76 H 04/09/20 05:07 108 H 18 119/65 04/09/20 04:04 119 H 18 105/66 04/09/20 03:52 38.1 C H 122 H 16 154/69 H Pulse Ox 04/09/20 11:14 95 04/09/20 07:31 97 04/09/20 05:18 94 04/09/20 05:07 94 04/09/20 04:04 95 04/09/20 03:52 96 Lab Results (24hrs): Laboratory Tests (24 Hours) 04/09/20 04/09/20 04/09/20 13:03 13:03 06:01 WBC 8.09 Neut # (Auto) 6.71 H Creatinine 1.77 H 1.70 H Est Cr Clr Drug Dosing 57.4 59.8 04/09/20 04/09/20 00:08 00:08 WBC 8.29 Neut # (Auto) 6.60 H Creatinine 1.60 H Est Cr Clr Drug Dosing 63.3 Micro Results: 04/09/20 00:32 Anaerobic Blood Culture - Pending Blood 04/09/20 00:08 Aerobic Blood Culture - Pending Blood - Risk Factors for Resistance * Chronically on Doxycycline for acne - Assessment & Plan Assessment 69 year old M presenting with fevers, chills, abdominal cramping, cough and diarrhea. Normal WBC. CXR clear. COVID negative. Plan Vancomycin for Empiric treatment Vancomycin IV * Estimated PK Parameters: Vd 0.54 L/kg, Fernando 0.054 hr-1, t1/2 13 hr * Loading dose: 2750 mg (20.5 mg/kg) * Maintenance dose: 1500 mg IV (11 mg/kg) every 12 hours * Trough level will be ordered if Vanc to continue longer than 48 hours Pharmacy will continue to follow and will adjust dose/frequency as necessary. Thank you.
--- NOTE | 2020-04-09 15:30 | History & Physical Bridge Note ---
Date of Service April 09, 2020 History & Physical Bridge Note I have examined the patient, reviewed the History & Physical and in the interval since the performance of the History & Physical I have noted the following changes of clinical significance: patient admitted after midnight he is still having a lot of diaphoresis, low grade fever, just feels unwell overall however, he is feeling better compared to last night, so much so that he asks if he can go home today discussed with him that he has bacteremia, both blood cultures with gram positive bacteria CXR is clear, urine is clean, no abdominal pain, just some occasional diarrhea but nothing today he had the vein sclerotherapy on left leg on 04/06, said he felt well for two days after and then symptoms started suddenly at 8pm last night no erythema in left leg, he has some venous stasis changes but they were there prior reviewed labs and repeated labs at 1300 today LA is 2.3, Cr going up to 1.77, Mag is normal now at 2.1, Phos low at 1.8, K is 3.9 WBC normal, Hb 11, plts 154 COVID 19 was negative in the ED BP was elevated this AM, now low normal continue on Aztreonam and Vancomycin for bacteremia, follow up final culture results at this point the possible source of infection would be venous access on 04/06 as there are no other clear sources for gram positive bacteremia repeat blood cultures in the morning
[2020-04-09] MEDS ORDERED: SODIUM CHLORIDE 0.9% 500 ML IV ONE (15:31)
[2020-04-09] MEDS ORDERED: POTASSIUM PHOSPHATE 21 MMOL in SODIUM CHLORIDE 0.9% 500 ML IV SCH (15:45)
[2020-04-09] MEDS: VANCOMYCIN HCL 1,500 MG in SODIUM CHLORIDE 0.9% 500 ML IV SCH (17:12)
[2020-04-09] MEDS: AMITRIPTYLINE HCL 25 MG TAB PO SCH (20:48)
[2020-04-10] MEDS: SODIUM CHLORIDE 0.9% 1000ML 1,000 ML IV SCH (00:07)
[2020-04-10] MEDS: KETOCONAZOLE~ORDER AWAITING ACTION SCH ×4 (00:10→23:27)
[2020-04-10] MEDS: ACETAMINOPHEN 325 MG TAB PO PRN ×2 (03:55→23:57)
[2020-04-10] MEDS: VANCOMYCIN HCL 1,500 MG in SODIUM CHLORIDE 0.9% 500 ML IV SCH (05:51)
[2020-04-10] MEDS: AZTREONAM 2,000 MG in DEXTROSE 5% 100 ML IV SCH (07:58)
[2020-04-10] MEDS: CLOPIDOGREL BISULFATE 75 MG TAB PO SCH (07:59)
[2020-04-10] MEDS: PANTOprazole 40 MG TAB PO SCH (07:59)
[2020-04-10] MEDS: FERROUS SULFATE 325 MG TAB PO SCH (07:59)
[2020-04-10] MEDS: ATORVASTATIN 40 MG TAB PO SCH (07:59)
[2020-04-10] MEDS: ASPIRIN 81 MG ECTAB PO SCH (08:00)
[2020-04-10] MEDS: PREGABALIN 50 MG CAP PO SCH ×2 (08:01→20:58)
[2020-04-10] MEDS: INSULIN ASPART 100 UNITS/ML 3 ML PEN SC SCH ×4 (08:04→20:58)
[2020-04-10] MEDS: INSULIN HUMAN NPH SC SCH ×2 (08:04→18:15)
[2020-04-10 08:43] LABS: Basophils # (auto) 0.02 K/uL (0-0.2); Basophils % (auto) 0.4 %; Eosinophils % (auto) 3.9 %; Hematocrit (blood only) 32.8 % (42-52); Hemoglobin 10.4 g/dL (14.0-18.0); Immature Granulocytes # (auto) 0.01 K/uL (0.00-0.02); Immature Granulocytes % (auto) 0.2 %; Lymphocytes # (auto) 1.19 K/uL (1.2-3.4); Mean Corpuscular Hemoglobin 26.5 pg (25-34); Mean Corpuscular Hgb Conc 31.7 g/dL (32-36); Mean Corpuscular Volume 83.5 fL (80-100); Mean Platelet Volume 11.1 fL (7.4-10.4); Monocytes # (auto) 0.42 K/uL (0.11-0.59); Monocytes % (auto) 8.1 %; Neutrophils # (auto) 3.33 K/uL (1.4-6.5); Neutrophils % (auto) 64.4 %; Platelet Count 135 K/uL (130-400); RDW Standard Deviation 48.8 fL (36.4-46.3); Red Blood Count 3.93 M/uL (4.7-6.1); White Blood Count 5.17 K/uL (4.8-10.8)
[2020-04-10 09:31] LABS: Bilirubin Direct 0.3 mg/dl (0-0.2); Creatinine Clr Calc Pharmacy 70.7 ml/min; Est GFR (African American) 56.9; Est GFR (Non-African American) 49.1; Magnesium 2.1 mg/dl (1.8-2.4)
[2020-04-10 09:34] LABS: Bilirubin,Total 1.1 mg/dl (0.2-1); Total Protein 6.9 gm/dl (6.4-8.2)
[2020-04-10] MEDS: cefTRIAXone SODIUM 2,000 MG in DEXTROSE 5% 50 ML IV SCH (09:59)
--- NOTE | 2020-04-10 10:15 | Hospitalist Progress Note ---
Date of Service April 10, 2020 Assessment & Plan (1) Sepsis: Patient febrile, tachycardic, elevated lactate on admission symptoms started suddenly at 8pm the day prior to admission rigors, diaphoresis, chills, fever CXR clear, urine clean, no GI symptoms only risk factor for infection was recent sclerotherapy for varicose veins on 04/06 blood cultures both growing Group B strep will change to Rocephin 2gm IV daily repeat blood cultures this morning, 04/10 will need to be here until 04/12 to document that repeat cultures negative at 48 hours (2) Bacteremia: group B strep, both cultures repeat cultures done this morning continue Rocephin no murmurs on exam, no skin manifestations of endocarditis if repeat cultures also positive will check echocardiogram (3) Acidosis, lactic: Elevated lactate. Patient febrile, tachycardic, BP is stable. On Metformin. treated with aggressive IV fluids, antibiotics lactic acid down to 2.3 when last checked no need to repeat, clinically he is much improved with stable blood pressure, normal mentation, making urine (4) Hypomagnesemia: Magnesium = 0.9 up to 2.1 on 04/09 after aggressive IV replacement repeat tomorrow (5) Coronary artery disease: History of CAD. Presently with no CP. -Continue ASA, Plavix, Atorvastatin hold Metoprolol with sepsis (6) Type 2 diabetes mellitus with peripheral neuropathy: Poorly controlled DM, last HgbA1C ON 03/23/20 = 9.8, puts him at higher risk of infection -Hold Metformin -Lantus, ISS -Glycemic management consultation monitor for hypoglycemia (7) GERD without esophagitis: Chronic. Stable -Continue Omeprazole (8) Hypertension: Blood pressure low normal -Hold antihypertensives for now in setting of sepsis -Holding Isosorbide, Irbesartan -hold Metoprolol -Closely monitor BP, better today, no hypotension, no signs of shock (9) Dyslipidemia: Chronic. -Continue Atorvastatin 40mg po daily F/E/N - IVF with NSS at 80mL/hr x 2 liters , replete Mg as above, Heart Healthy/CC diet as tolerated Ppx - Continue Protonix 40mg po daily Code - Full. CPAP qHS at 10 Dispo - Admit to PCU (10) Hypophosphatemia: K phos given on 04/09, resolved Admission and Anticipated Discharge Date Admission Date: April 09, 2020 Subjective patient feeling a lot better today, no fever, no chills, no rigors or diaphoresis he says he feels 100% better compared to yesterday no dyspnea, no cough, no abdominal pain, no dysuria he is eating well reviewed blood cultures, group B strep in both sets of initial cultures, repeat cultures drawn this morning Cr down to 1.4 today discussed that group B strep common on skin listened closely to his heart, no murmurs heard, no petechiae or other signs of endocarditis Review of Systems Review of Systems: All systems reviewed & are unremarkable except as noted in HPI & below Constitutional: + fatigue; no fever, no chills, no sweats, no malaise and no weakness Respiratory: no cough and no dyspnea Cardiovascular: no chest pain and no edema Gastrointestinal: no abdominal pain, no nausea, no vomiting, no constipation a nd no diarrhea/loose stools Physical Exam Constitutional: WD/WN, vitals as above + overweight Eyes: PERRL, conjunctivae normal, anicteric sclerae ENMT: external ear and nose normal, oropharynx normal Neck: trachea midline, no thyromegaly Respiratory: normal respiratory effort, lungs clear to auscultation Cardiovascular: RRR, no murmur, no edema Gastrointestinal (Abdomen): normal bowel sounds, soft, nontender, no hepatosplenomegaly Musculoskeletal: no cyanosis or clubbing, extremities motor strength 5/5 Skin: normal turgor and + rash (dark discoloration, venous stasis changes bilateral lower legs) Neurologic: patellar DTR's 2+ bilat, sensation intact and PERRL, EOMI, accommodation nl, no face palsy, no dysarthria Psychiatric: A+Ox3, euthymic affect Lymphatic: no cervical or axillary lymphadenopathy Results & Data Results & Data ([facility]) Vital Signs (Past 12 Hours) Vital Signs Temp Pulse Pulse Pulse Resp BP Pulse Ox 04/10/20 08:00 78 04/10/20 07:54 37.6 C H 85 18 157/80 H 97 04/10/20 03:57 37.3 C 76 18 110/56 L 99 04/10/20 02:55 77 28 H 97 04/10/20 00:08 36.7 C 77 20 149/77 H 95 04/09/20 23:30 73 18 95 Laboratory Results Laboratory Results - last 24 hr 04/09/20 04/09/20 04/09/20 11:27 13:03 13:03 WBC 8.09 RBC 4.17 L Hgb 11.1 L Hct 35.0 L MCV 83.9 MCH 26.6 MCHC 31.7 L RDW Std Deviation 48.2 H RDW Coeff of Sho 15.9 H Plt Count 154 MPV 11.2 H Immature Gran % (Auto) 0.4 Neut % (Auto) 83.0 Lymph % (Auto) 9.3 Gates % (Auto) 6.9 Eos % (Auto) 0.2 Baso % (Auto) 0.2 Neut # (Auto) 6.71 H Lymph # (Auto) 0.75 L Gates # (Auto) 0.56 Eos # (Auto) 0.02 Baso # (Auto) 0.02 Immature Gran # (Auto) 0.03 H Absolute Nucleated RBC 0.02 H Nucleated RBC % (auto) 0.2 Sodium 137 Potassium 3.9 Chloride 104 Carbon Dioxide 23 Anion Gap 10.0 BUN 21 H Creatinine 1.77 H Est Cr Clr Drug Dosing 57.4 Est GFR ( Amer) 44.7 Est GFR (Non-Af Amer) 38.6 BUN/Creatinine Ratio 12.1 Glucose 124 H POC Glucose 134 H Lactate Calcium 8.4 L Phosphorus 1.8 L Magnesium 2.1 Total Bilirubin Direct Bilirubin AST ALT Alkaline Phosphatase Total Protein Albumin Procalcitonin 04/09/20 04/09/20 04/09/20 13:03 16:21 20:20 WBC RBC Hgb Hct MCV MCH MCHC RDW Std Deviation RDW Coeff of Sho Plt Count MPV Immature Gran % (Auto) Neut % (Auto) Lymph % (Auto) Gates % (Auto) Eos % (Auto) Baso % (Auto) Neut # (Auto) Lymph # (Auto) Gates # (Auto) Eos # (Auto) Baso # (Auto) Immature Gran # (Auto) Absolute Nucleated RBC Nucleated RBC % (auto) Sodium Potassium Chloride Carbon Dioxide Anion Gap BUN Creatinine Est Cr Clr Drug Dosing Est GFR ( Amer) Est GFR (Non-Af Amer) BUN/Creatinine Ratio Glucose POC Glucose 106 H 125 H Lactate 2.3 H* Calcium Phosphorus Magnesium Total Bilirubin Direct Bilirubin AST ALT Alkaline Phosphatase Total Protein Albumin Procalcitonin 06/04/10/20 04/10/20 07:38 08:23 08:23 WBC 5.17 RBC 3.93 L Hgb 10.4 L Hct 32.8 L MCV 83.5 MCH 26.5 MCHC 31.7 L RDW Std Deviation 48.8 H RDW Coeff of Sho 16.0 H Plt Count 135 MPV 11.1 H Immature Gran % (Auto) 0.2 Neut % (Auto) 64.4 Lymph % (Auto) 23.0 Gates % (Auto) 8.1 Eos % (Auto) 3.9 Baso % (Auto) 0.4 Neut # (Auto) 3.33 Lymph # (Auto) 1.19 L Gates # (Auto) 0.42 Eos # (Auto) 0.20 Baso # (Auto) 0.02 Immature Gran # (Auto) 0.01 Absolute Nucleated RBC Nucleated RBC % (auto) Sodium Potassium Chloride Carbon Dioxide Anion Gap BUN Creatinine 1.45 H D Est Cr Clr Drug Dosing 70.7 Est GFR ( Amer) 56.9 Est GFR (Non-Af Amer) 49.1 BUN/Creatinine Ratio Glucose POC Glucose 132 H Lactate Calcium Phosphorus Magnesium 2.1 Total Bilirubin 1.1 H Direct Bilirubin 0.3 H AST 25 ALT 20 Alkaline Phosphatase 119 H Total Protein 6.9 Albumin 3.0 L Procalcitonin 04/10/20 08:23 WBC RBC Hgb Hct MCV MCH MCHC RDW Std Deviation RDW Coeff of Sho Plt Count MPV Immature Gran % (Auto) Neut % (Auto) Lymph % (Auto) Gates % (Auto) Eos % (Auto) Baso % (Auto) Neut # (Auto) Lymph # (Auto) Gates # (Auto) Eos # (Auto) Baso # (Auto) Immature Gran # (Auto) Absolute Nucleated RBC Nucleated RBC % (auto) Sodium Potassium Chloride Carbon Dioxide Anion Gap BUN Creatinine Est Cr Clr Drug Dosing Est GFR ( Amer) Est GFR (Non-Af Amer) BUN/Creatinine Ratio Glucose POC Glucose Lactate Calcium Phosphorus Magnesium Total Bilirubin Direct Bilirubin AST ALT Alkaline Phosphatase Total Protein Albumin Procalcitonin 4.30 H Medications Administered Current Inpatient Medications Acetaminophen (Tylenol) 650 mg PO Q4H PRN PRN Reason: Pain or Fever Stop: 05/09/20 05:15 Last Admin: 04/10/20 03:55 Dose: 650 mg Documented by: Amitriptyline HCl (Elavil) 75 mg PO HS [facility] Stop: 05/09/20 20:59 Last Admin: 04/09/20 20:48 Dose: 75 mg Documented by: Aspirin (Ecotrin Ectab) 81 mg PO DAILY JANIE Stop: 05/09/20 08:59 Last Admin: 04/10/20 08:00 Dose: 81 mg Documented by: Atorvastatin Calcium (Lipitor) 40 mg PO DAILY JANIE Stop: 05/09/20 08:59 Last Admin: 04/10/20 07:59 Dose: 40 mg Documented by: Clopidogrel Bisulfate (Plavix) 75 mg PO DAILY [facility] Stop: 05/09/20 08:59 Last Admin: 04/10/20 07:59 Dose: 75 mg Documented by: Dextrose (Dextrose 50%) 25 - 50 ml IV UD PRN; Protocol PRN Reason: Hypoglycemia Protocol Stop: 05/09/20 05:15 Ferrous Sulfate (Feosol) 325 mg PO DAILY JANIE Stop: 05/09/20 08:59 Last Admin: 04/10/20 07:59 Dose: 325 mg Documented by: Glucagon (Glucagen) 1 mg SQ UD PRN; Protocol PRN Reason: Hypoglycemia Protocol Stop: 05/09/20 05:15 Glucose (Dex4 Glucose) 4 - 8 tabs PO UD PRN; Protocol PRN Reason: Hypoglycemia Protocol Stop: 05/09/20 05:15 Glucose (Glucose 40%) 15 - 30 gm PO UD PRN; Protocol PRN Reason: Hypoglycemia Protocol Stop: 05/09/20 05:15 Ceftriaxone Sodium 2,000 mg/ (Dextrose) 70 mls @ 100 mls/hr IV DAILY [facility]; Protocol Stop: 04/24/20 09:59 Last Admin: 04/10/20 09:59 Dose: 100 mls/hr Documented by: Insulin Aspart (Novolog Flexpen) 0 units SC ACHS [facility] Stop: 05/09/20 07:29 Last Admin: 04/10/20 08:04 Dose: 10 units Documented by: Insulin Human NPH (Novolin N Nph) 33 units SC BIDM [facility] Stop: 05/09/20 07:59 Last Admin: 04/10/20 08:04 Dose: 33 units Documented by: Metoprolol Tartrate (Lopressor) 50 mg PO BID [facility] Stop: 05/09/20 08:59 Last Admin: 04/09/20 08:20 Dose: 50 mg Documented by: Ashishaneous (Order Awaiting Action) 1 ea N/A QS JANIE Stop: 05/09/20 07:59 Last Admin: 04/10/20 08:48 Dose: Not Given Documented by: Ashishaneous (Order Awaiting Action) 1 ea N/A QS JANIE Stop: 05/09/20 07:59 Last Admin: 04/10/20 08:48 Dose: Not Given Documented by: Miscellaneous (Carbohydrates For Hypoglycemia) 15 - 30 gm PO UD PRN PRN Reason: Hypoglycemia Protocol Stop: 05/09/20 05:15 Miscellaneous Information (Consult Glycemic Management Pharmacy) 1 ea N/A UD PRN; Protocol PRN Reason: Consult Stop: 05/09/20 05:33 Ondansetron HCl (Zofran) 4 mg IV Q6H PRN PRN Reason: Nausea Stop: 05/09/20 05:15 Pantoprazole Sodium (Protonix) 40 mg PO DAILY JANIE Stop: 05/09/20 08:59 Last Admin: 04/10/20 07:59 Dose: 40 mg Documented by: Pregabalin (Lyrica) 50 mg PO BID JANIE Stop: 05/09/20 08:59 Last Admin: 04/10/20 08:01 Dose: 50 mg Documented by: PG Care Time/CCT Total # of Minutes Spent Total Time Spent with Patient: Total time spent is greater than 50% in coordination of care (as documented) at patient's floor/unit and/or counseling patient: Coding Level of Care Code 07571 Subs Hosp Care Lvl 3 Diagnoses Sepsis A41.9 Sepsis acute organ dysfunction status: without acute organ dysfunction Sepsis type: sepsis due to unspecified organism Bacteremia R78.81 Acidosis, lactic E87.2 Hypomagnesemia E83.42 Coronary artery disease I25.10 Coronary Disease-Associated Artery/Lesion type: [place] artery [place] vs. transplanted heart: [place] heart Associated angina: without angina Type 2 diabetes mellitus with peripheral neuropathy E11.42 GERD without esophagitis K21.9 Hypertension I10 Hypertension type: essential hypertension Dyslipidemia E78.5 Hypophosphatemia E83.39 (1) Sepsis Sepsis acute organ dysfunction status: without acute organ dysfunction Sepsis type: sepsis due to unspecified organism Qualified Code(s): A41.9 - Sepsis, unspecified organism (2) Coronary artery disease Coronary Disease-Associated Artery/Lesion type: [place] artery [place] vs. transplanted heart: [place] heart Associated angina: without angina Qualified Code(s): I25.10 - Atherosclerotic heart disease of [place] coronary artery without angina pectoris (3) Hypertension Hypertension type: essential hypertension Qualified Code(s): I10 - Essential (primary) hypertension
--- NOTE | 2020-04-10 11:27 | Pharmacy Report ---
PHA: Glycemic Control AP - Date of Service April 10, 2020 - Assessment & Plan The patient is currently receiving 85 units of insulin per day. BSGs ranging 106 - 209 mg/dl over the past 24hrs. * Basal insulin: NPH 33 units every 12 hours given with breakfast and dinner * Correctional Insulin: Novolog Correction per scale ACHS Goal Range: Low 110 mg/dL - High 140 mg/dL Correction Factor: 10 mg/dL/unit * Prandial insulin: Per carb ratio of 1 unit per 3 grams CHO consumed BSGs continue to improve, no changes needed to inpatient regimen at this time. Pharmacy will continue to monitor patient daily and write orders per [facility] inpatient glycemic control protocol. Thanks. * Please note that the plan above was derived based on current level of insulin resistance and hospital stress. These recommendations are appropriate for inpatient admission only. Plan of care upon discharge will need to be reassessed to avoid potential outpatient hypo/hyperglycemia.
[2020-04-10] MEDS: AMITRIPTYLINE HCL 25 MG TAB PO SCH (20:58)
[2020-04-11 06:49] LABS: Albumin Level 2.9 gm/dl (3.4-5.0); Bilirubin Direct 0.2 mg/dl (0-0.2); Bilirubin,Total 0.8 mg/dl (0.2-1); Creatinine Clr Calc Pharmacy 80.7 ml/min; Est GFR (African American) 66.8; Est GFR (Non-African American) 57.7; Total Protein 6.9 gm/dl (6.4-8.2)
[2020-04-11] MEDS: ACETAMINOPHEN 325 MG TAB PO PRN (07:39)
[2020-04-11] MEDS: PREGABALIN 50 MG CAP PO SCH ×2 (08:13→21:03)
[2020-04-11] MEDS: ATORVASTATIN 40 MG TAB PO SCH (08:14)
[2020-04-11] MEDS: CLOPIDOGREL BISULFATE 75 MG TAB PO SCH (08:14)
[2020-04-11] MEDS: FERROUS SULFATE 325 MG TAB PO SCH (08:14)
[2020-04-11] MEDS: ASPIRIN 81 MG ECTAB PO SCH (08:14)
[2020-04-11] MEDS: PANTOprazole 40 MG TAB PO SCH ×2 (08:14→08:37)
[2020-04-11] MEDS ORDERED: TRAMADOL HCL 50 MG TABLET PO STA (08:16)
[2020-04-11] MEDS: cefTRIAXone SODIUM 2,000 MG in DEXTROSE 5% 50 ML IV SCH (08:21)
[2020-04-11] MEDS: KETOCONAZOLE~ORDER AWAITING ACTION SCH ×3 (08:21→23:53)
[2020-04-11] MEDS: INSULIN HUMAN NPH SC SCH ×2 (08:24→18:31)
[2020-04-11] MEDS: INSULIN ASPART 100 UNITS/ML 3 ML PEN SC SCH ×4 (08:24→21:56)
--- NOTE | 2020-04-11 12:22 | Hospitalist Progress Note ---
Date of Service April 11, 2020 Assessment & Plan (1) Sepsis: Patient febrile, tachycardic, elevated lactate on admission symptoms started suddenly at 8pm the day prior to admission rigors, diaphoresis, chills, fever CXR clear, urine clean, no GI symptoms only risk factor for infection was recent sclerotherapy for varicose veins on 04/06 blood cultures both growing Group B strep continue Rocephin 2gm IV daily repeat blood cultures morning 04/10 no growth at 24 hours will need to be here until 04/12 to document that repeat cultures negative at 48 hours according to [employer], patients with uncomplicated, nosocomial bacteremia, the treatment recommendation is 14 days of IV antibiotics will request an US guided IV, discuss with CM to arrange for Rocephin 2gm IV daily x 14 days from 04/10 (2) Bacteremia: group B strep, both cultures repeat cultures done morning of 04/10, no growth at 24 hours continue Rocephin 2gm IV daily no murmurs on exam, no skin manifestations of endocarditis if repeat cultures also positive will check echocardiogram plan for 14 days of Rocephin 2gm IV daily from 04/10 if cultures remain negative tomorrow (3) Acidosis, lactic: Elevated lactate. Patient febrile, tachycardic, BP is stable. On Metformin. treated with aggressive IV fluids, antibiotics lactic acid down to 2.3 when last checked no need to repeat, clinically he is much improved with stable blood pressure, normal mentation, making urine (4) Hypomagnesemia: Magnesium = 0.9 up to 2.1 on 04/09 after aggressive IV replacement (5) Coronary artery disease: History of CAD. Presently with no CP. -Continue ASA, Plavix, Atorvastatin resume Metoprolol (6) Type 2 diabetes mellitus with peripheral neuropathy: Poorly controlled DM, last HgbA1C ON 03/23/20 = 9.8, puts him at higher risk of infection -Hold Metformin -Lantus, ISS -Glycemic management consultation monitor for hypoglycemia (7) GERD without esophagitis: Chronic. Stable -Continue Omeprazole (8) Hypertension: Blood pressure low normal -resume anti-hypertensives now that BP elevated (9) Dyslipidemia: Chronic. -Continue Atorvastatin 40mg po daily Ppx - Continue Protonix 40mg po daily Code - Full. CPAP qHS at 10 Dispo - transferrred to medical floor anticipate d/c home on Rocephin 2gm IV daily x 14 days from 04/10, last day would be 04/24 (10) Hypophosphatemia: K phos given on 04/09, resolved (11) Chronic venous insufficiency: s/p sclerotherapy to the left leg varicose veins today with increased pain and swelling will check venous doppler ask Dr. Botello to check on leg Admission and Anticipated Discharge Date Admission Date: April 09, 2020 Anticipated date of discharge: 04/12/20 Subjective patient feeling better overall, no fever/chills, no rigors, eating well, breathing well left leg is more swollen below the knee and more tender just below knee he said that cardiology warned him of chance of swelling after procedure discussed with Dr. Botello, he will stop by to see patient talked with patient, will get venous doppler on left reviewed labs, Cr 1.27, repeat blood cultures from 04/10 show no growth at 24 hours updated patient's [place] over the phone Review of Systems Review of Systems: All systems reviewed & are unremarkable except as noted in HPI & below Constitutional: no fever, no chills, no sweats, no fatigue and no weakness Respiratory: no cough and no dyspnea Cardiovascular: + edema (left leg) and + calf pain (left leg); no chest pain Gastrointestinal: no abdominal pain, no nausea, no vomiting, no constipation and no diarrhea/loose stools Integumentary: + rash (dark erythema left leg, sporadic) Physical Exam Constitutional: WD/WN, vitals as above + overweight Eyes: PERRL, conjunctivae normal, anicteric sclerae ENMT: external ear and nose normal, oropharynx normal Neck: trachea midline, no thyromegaly Respiratory: normal respiratory effort, lungs clear to auscultation Cardiovascular: Rate/Rhythm: regular rate and regular rhythm Heart Sounds: normal S1 and normal S2; no murmur Vessels: no JVD Extremities: normal capillary refill, + calf tenderness (left), + edema (left leg swollen) and + varicosities Gastrointestinal (Abdomen): normal bowel sounds, soft, nontender, no hepatosplenomegaly Musculoskeletal: no cyanosis or clubbing, extremities motor strength 5/5 Skin: normal turgor and + rash (dark discoloration, venous stasis changes bilateral lower legs) Neurologic: patellar DTR's 2+ bilat, sensation intact and PERRL, EOMI, accommodation nl, no face palsy, no dysarthria Psychiatric: A+Ox3, euthymic affect Lymphatic: no cervical or axillary lymphadenopathy Results & Data Results & Data ([facility]) Vital Signs (Past 12 Hours) Vital Signs Temp Pulse Pulse Resp BP Pulse Ox 04/11/20 07:38 36.9 C 74 18 157/71 H 96 04/11/20 03:21 72 18 92 Laboratory Results Laboratory Results - last 24 hr 04/10/20 04/10/20 04/10/20 12:14 17:07 20:29 Creatinine Est Cr Clr Drug Dosing Est GFR ( Amer) Est GFR (Non-Af Amer) POC Glucose 167 H 98 165 H Total Bilirubin Direct Bilirubin AST ALT Alkaline Phosphatase Total Protein Albumin 04/11/20 04/11/20 05:38 08:03 Creatinine 1.27 Est Cr Clr Drug Dosing 80.7 Est GFR ( Amer) 66.8 Est GFR (Non-Af Amer) 57.7 POC Glucose 132 H Total Bilirubin 0.8 Direct Bilirubin 0.2 AST 24 ALT 18 Alkaline Phosphatase 124 H Total Protein 6.9 Albumin 2.9 L Microbiology 04/10/20 08:23 Blood Aerobic Blood Culture - Preliminary No growth in Aerobic bottle after 24 hours. 04/10/20 08:23 Blood Anaerobic Blood Culture - Preliminary No growth in Anaerobic bottle after 24 hours. 04/10/20 08:34 Blood Aerobic Blood Culture - Preliminary No growth in Aerobic bottle after 24 hours. 04/10/20 08:34 Blood Anaerobic Blood Culture - Preliminary No growth in Anaerobic bottle after 24 hours. 04/09/20 00:32 Blood Aerobic Blood Culture - Preliminary Group B Beta Strep 04/09/20 00:32 Blood Anaerobic Blood Culture - Preliminary No growth in Anaerobic bottle after 48 hours. 04/09/20 00:08 Blood Aerobic Blood Culture - Preliminary No growth in Aerobic bottle after 48 hours. 04/09/20 00:08 Blood Anaerobic Blood Culture - Preliminary Group B Beta Strep Medications Administered Current Inpatient Medications Acetaminophen (Tylenol) 650 mg PO Q4H PRN PRN Reason: Pain or Fever Stop: 05/09/20 05:15 Last Admin: 04/11/20 07:39 Dose: 650 mg Documented by: Amitriptyline HCl (Elavil) 75 mg PO HS [facility] Stop: 05/09/20 20:59 Last Admin: 04/10/20 20:58 Dose: 75 mg Documented by: Aspirin (Ecotrin Ectab) 81 mg PO DAILY [facility] Stop: 05/09/20 08:59 Last Admin: 04/11/20 08:14 Dose: 81 mg Documented by: Atorvastatin Calcium (Lipitor) 40 mg PO DAILY [facility] Stop: 05/09/20 08:59 Last Admin: 04/11/20 08:14 Dose: 40 mg Documented by: Clopidogrel Bisulfate (Plavix) 75 mg PO DAILY [facility] Stop: 05/09/20 08:59 Last Admin: 04/11/20 08:14 Dose: 75 mg Documented by: Dextrose (Dextrose 50%) 25 - 50 ml IV UD PRN; Protocol PRN Reason: Hypoglycemia Protocol Stop: 05/09/20 05:15 Ferrous Sulfate (Feosol) 325 mg PO DAILY [facility] Stop: 05/09/20 08:59 Last Admin: 04/11/20 08:14 Dose: 325 mg Documented by: Glucagon (Glucagen) 1 mg SQ UD PRN; Protocol PRN Reason: Hypoglycemia Protocol Stop: 05/09/20 05:15 Glucose (Dex4 Glucose) 4 - 8 tabs PO UD PRN; Protocol PRN Reason: Hypoglycemia Protocol Stop: 05/09/20 05:15 Glucose (Glucose 40%) 15 - 30 gm PO UD PRN; Protocol PRN Reason: Hypoglycemia Protocol Stop: 05/09/20 05:15 Ceftriaxone Sodium 2,000 mg/ (Dextrose) 70 mls @ 100 mls/hr IV DAILY [facility]; Protocol Stop: 04/24/20 09:59 Last Infusion: 04/11/20 09:14 Dose: Infused Documented by: Insulin Aspart (Novolog Flexpen) 0 units SC ACHS [facility] Stop: 05/09/20 07:29 Last Admin: 04/11/20 08:24 Dose: 19 units Documented by: Insulin Human NPH (Novolin N Nph) 33 units SC BIDM [facility] Stop: 05/09/20 07:59 Last Admin: 04/11/20 08:24 Dose: 33 units Documented by: Metoprolol Tartrate (Lopressor) 50 mg PO BID [facility] Stop: 05/09/20 08:59 Last Admin: 04/09/20 08:20 Dose: 50 mg Documented by: Miscellaneous (Order Awaiting Action) 1 ea N/A QS [facility] Stop: 05/09/20 07:59 Last Admin: 04/11/20 08:21 Dose: Not Given Documented by: Miscellaneous (Order Awaiting Action) 1 ea N/A QS [facility] Stop: 05/09/20 07:59 Last Admin: 04/11/20 08:21 Dose: Not Given Documented by: Miscellaneous (Carbohydrates For Hypoglycemia) 15 - 30 gm PO UD PRN PRN Reason: Hypoglycemia Protocol Stop: 05/09/20 05:15 Miscellaneous Information (Consult Glycemic Management Pharmacy) 1 ea N/A UD PRN; Protocol PRN Reason: Consult Stop: 05/09/20 05:33 Ondansetron HCl (Zofran) 4 mg IV Q6H PRN PRN Reason: Nausea Stop: 05/09/20 05:15 Pantoprazole Sodium (Protonix) 40 mg PO DAILY [facility] Stop: 05/09/20 08:59 Last Admin: 04/11/20 08:37 Dose: 40 mg Documented by: Pregabalin (Lyrica) 50 mg PO BID [facility] Stop: 05/09/20 08:59 Last Admin: 04/11/20 08:13 Dose: 50 mg Documented by: PG Care Time/CCT Total # of Minutes Spent Total Time Spent with Patient: Total time spent is greater than 50% in coordination of care (as documented) at patient's floor/unit and/or counseling patient: Coding Level of Care Code 57944 Subseq Hosp Care Lvl 3 Diagnoses Sepsis A41.9 Sepsis acute organ dysfunction status: without acute organ dysfunction Sepsis type: sepsis due to unspecified organism Bacteremia R78.81 Acidosis, lactic E87.2 Hypomagnesemia E83.42 Coronary artery disease I25.10 Coronary Disease-Associated Artery/Lesion type: [place] artery [place] vs. transplanted heart: [place] heart Associated angina: without angina Type 2 diabetes mellitus with peripheral neuropathy E11.42 GERD without esophagitis K21.9 Hypertension I10 Hypertension type: essential hypertension Dyslipidemia E78.5 Hypophosphatemia E83.39 Chronic venous insufficiency I87.2 (1) Sepsis Sepsis acute organ dysfunction status: without acute organ dysfunction Sepsis type: sepsis due to unspecified organism Qualified Code(s): A41.9 - Sepsis, unspecified organism (2) Coronary artery disease Coronary Disease-Associated Artery/Lesion type: [place] artery [place] vs. transplanted heart: [place] heart Associated angina: without angina Qualified Code(s): I25.10 - Atherosclerotic heart disease of [place] coronary artery without angina pectoris (3) Hypertension Hypertension type: essential hypertension Qualified Code(s): I10 - Essential (primary) hypertension
--- NOTE | 2020-04-11 13:55 | Ultrasound Report ---
LEFT LOWER EXTREMITY VENOUS DOPPLER HISTORY: Left leg Pain, swelling, s/p sclerotherapy COMPARISON STUDY: None. FINDINGS: There is normal compressibility, flow, and augmentation within the left lower extremity [place] p venous system. A single enlarged left inguinal lymph node measuring 4.8 x 3.3 x 1.2 cm. However, th is demonstrates a normal fatty hilum and a thin cortex. IMPRESSION: No DVT within the left lower extremity. A single enlarged left inguinal lymph node. ACT 112: Negative or not required by law. Electronically signed by: Jesus De La Cruz M.D. 04/11/2020 1:54 PM
[2020-04-11] MEDS: ISOSORBIDE MONO EXTENDED REL 60 MG TABCR PO SCH (14:02)
[2020-04-11] MEDS: IRBESARTAN 150 MG TAB PO SCH (14:03)
[2020-04-11] MEDS ORDERED: TRAMADOL HCL 50 MG TABLET PO PRN (16:51)
[2020-04-11] MEDS: FUROSEMIDE 40 MG TAB PO SCH (17:58)
[2020-04-11] MEDS: AMITRIPTYLINE HCL 25 MG TAB PO SCH (21:02)
[2020-04-11] MEDS: METOPROLOL TARTRATE 50 MG TAB PO SCH (21:03)
[2020-04-12 06:52] LABS: Basophils # (auto) 0.01 K/uL (0-0.2); Basophils % (auto) 0.2 %; Eosinophils # (auto) 0.25 K/uL (0-0.5); Hematocrit (blood only) 29.4 % (42-52); Hemoglobin 9.4 g/dL (14.0-18.0); Immature Granulocytes # (auto) 0.03 K/uL (0.00-0.02); Immature Granulocytes % (auto) 0.7 %; Lymphocytes # (auto) 1.52 K/uL (1.2-3.4); Lymphocytes % (auto) 36.6 %; Mean Corpuscular Hemoglobin 26.6 pg (25-34); Mean Corpuscular Volume 83.3 fL (80-100); Mean Platelet Volume 11.1 fL (7.4-10.4); Monocytes # (auto) 0.45 K/uL (0.11-0.59); Monocytes % (auto) 10.8 %; Neutrophils # (auto) 1.89 K/uL (1.4-6.5); Neutrophils % (auto) 45.7 %; Platelet Count 155 K/uL (130-400); RDW Coefficient of Variation 15.9 % (11.5-14.5); RDW Standard Deviation 48.3 fL (36.4-46.3); Red Blood Count 3.53 M/uL (4.7-6.1); White Blood Count 4.15 K/uL (4.8-10.8)
[2020-04-12] MEDS: KETOCONAZOLE~ORDER AWAITING ACTION SCH ×2 (07:20→16:19)
[2020-04-12 07:29] LABS: BUN Creatinine Ratio 13.8 (10-20); Calcium 7.8 mg/dl (8.5-10.1); Creatinine Clr Calc Pharmacy 88.4 ml/min; Est GFR (African American) 74.6; Est GFR (Non-African American) 64.3; Potassium 3.6 mmol/L (3.5-5.1)
[2020-04-12] MEDS: FERROUS SULFATE 325 MG TAB PO SCH (08:25)
[2020-04-12] MEDS: PANTOprazole 40 MG TAB PO SCH (08:25)
[2020-04-12] MEDS: ATORVASTATIN 40 MG TAB PO SCH (08:25)
[2020-04-12] MEDS: ISOSORBIDE MONO EXTENDED REL 60 MG TABCR PO SCH (08:25)
[2020-04-12] MEDS: ASPIRIN 81 MG ECTAB PO SCH (08:25)
[2020-04-12] MEDS: FUROSEMIDE 40 MG TAB PO SCH (08:25)
[2020-04-12] MEDS: PREGABALIN 50 MG CAP PO SCH (08:26)
[2020-04-12] MEDS: IRBESARTAN 150 MG TAB PO SCH (08:26)
[2020-04-12] MEDS: CLOPIDOGREL BISULFATE 75 MG TAB PO SCH (08:26)
[2020-04-12] MEDS: METOPROLOL TARTRATE 50 MG TAB PO SCH (08:26)
[2020-04-12] MEDS: cefTRIAXone SODIUM 2,000 MG in DEXTROSE 5% 50 ML IV SCH (08:26)
[2020-04-12] MEDS: INSULIN HUMAN NPH SC SCH (09:00)
[2020-04-12] MEDS: INSULIN ASPART 100 UNITS/ML 3 ML PEN SC SCH ×2 (09:00→13:10)
[2020-04-12] MEDS ORDERED: LACTOBACILLUS ACIDOPHILUS (FLORANEX) TAB PO SCH (12:00)
--- NOTE | 2020-04-12 12:57 | XCELERA ---
[id number] \\[id number]
--- NOTE | 2020-04-12 15:12 | Discharge Summary ---
Date of Service date of admission - April 09, 2020 date of discharge - April 12, 2020 Admission HPI Per Admitting Provider Mr. Lerner is a 69yo C male with history of CAD, DM, GERD, HTN and hyperlipidemia. Patient had recent US guided sclerotherapy performed on 04/06/[address] Botello. Last evening around 20:00 patient acutely developed fevers/chills, rigors, body aches, fatigue as well as abdominal cramping, nausea and diarrhea. Patient took Tylenol and Motrin for his symptoms. reports that patient became confused prior to arrival to the ER. On arrival to the ER patient was febrile, tachycardic. Covid-19 test performed and negative Principal Diagnosis group B strep septicemia 2nd to LLE cellulitis and recent vein procedure on left leg Discharge Exam Constitutional well developed, well nourished and + morbidly obese; no acute distress and no altered mental status ENMT external ear and nose normal, oropharynx normal Respiratory normal respiratory effort, lungs clear to auscultation Cardiovascular Rate/Rhythm: regular rate and regular rhythm Heart Sounds: normal S1 and normal S2; no murmur Vessels: posterior tibial pulses present and dorsalis pedis pulses present; no JVD Extremities: + edema (b/l legs; 1-2+ right; 2-3+ left) Gastrointestinal (Abdomen) normal bowel sounds, soft, nontender, no hepatosplenomegaly Skin venous stasis changes b/l shins, worse on left; mild warm erythema extending from above the left ankle to just below the left knee Psychiatric A+Ox3, euthymic affect Discharge Data Allergies Allergy/AdvReac Type Severity Reaction Status Date / Time Penicillins Allergy Unknown Unknown Verified 04/09/20 02:31 Ordered Studies 1. US venous doppler LE LT - no evidence of DVT 2. echocardiogram - * EF 55-60% * normal valves * no valvular vegetations 3. u/s-guided peripherally inserted IV Hospital Course (1) Septicemia: Patient had positive blood cultures for group B strep. This was likely due to LLE cellulitis in the setting of recent vein sclerotherapy on 04/06/2020 of the left leg. Patient clinically improved with IV antibiotics and supportive care. Echo failed to demonstrate signs of endocarditis. Repeat blood cultures drawn on the AM of 04/10/2020 remained negative prior to discharge. Patient had an u/s-guided peripherally inserted IV placed, and will discharge to home on rocephin 2gm IV daily. Total antibiotic course is 14 days beginning 04/10/2020. (2) Cellulitis of left lower extremity: Likely source of his septicemia. This clinically improved while here and was mild at time of discharge. He will complete 12 additional days of IV rocephin at home. (3) Chronic venous insufficiency: s/p recent sclerotherapy procedure of the LLE on 04/06/[address] Patrice Botello. He will continue with lasix and compression stockings as previous. He was instructed to follow-up with Dr Botello as scheduled. (4) Hypomagnesemia: 0.9 at admission, improving to 2.1 at discharge. Due to chronic diuretic usage? Potassium was 3.6 at time of discharge. (5) Type 2 diabetes mellitus with peripheral neuropathy: HbA1C of nearly 10% in early March 2020. Pnno-zhb-vjko control was excellent while hospitalized even despite his infection. f/u with PCP for ongoing counseling. (6) GERD without esophagitis: Continue PPI. (7) Coronary artery disease: Continue aspirin, lipitor, plavix, lasix, ARB, imdur, and metoprolol as previous. no ischemic symptoms while hospitalized. (8) Hypertension: Stable and controlled while hospitalized. (9) Dyslipidemia: Continue statin therapy. (10) Anemia: Discharge hemoglobin was 9.4. Ferritin was 37 in 06/2019. He takes slow-Fe at home. Recommend repeat iron studies, CBC, and fecal occult blood testing as outpatient. (11) Morbid obesity: BMI just shy of 40. Total Time Total Time Spent Total Time Spent (In Minutes): 40 Total Time Includes: Examination of the Patient, Discharge Planning and Medication Reconciliation Discharge Plan Discharge Items Patient Disposition: Home - Home Health Services Reason For Visit: SEPSIS Discharge Diagnosis: Strep infection in the blood ("bacteremia" / "septicemia") due to left leg infection +/- recent leg surgery Activity: As commented below Activity Comment: gradually increase your activities over the next 5 days Non-emergency contact: Primary Care Provider and Web Site Admin Call non-emergency contact if: you have any medication questions, your symptoms worsen and you have a fever Follow-up/Referrals: Zbigniew Bennett, DO [Primary Care Provider] - 04/18/20 9:20 am (Please, follow up with Dr. Zbigniew Bennett on SaturdayApril 18 at 9:20 am. *If you need to change this appointment, call the office at [phone].) Diet: Carb Consistent or DM2 and Heart Healthy Addtl Attending Provider Instructions: You were discovered to have a strep infection in your bloodstream. This was the cause of your fever, chills, etc. The exact type of strep was "group B strep." This likely got into your blood from the skin - particularly the left leg. It appears you have mild cellulitis of the left leg in the setting of your recent surgery. Your echocardiogram showed no evidence of infection of the heart valves. Your heart function was normal. Repeat blood cultures taken on 04/10/20 have NOT grown additional bacteria suggesting the blood is now sterile again. You have a special IV in your left arm that you will return home with. You will need about 12 more days of IV antibiotics via your IV. Please keep the IV clean/dry. Do not swim or take a bath with this IV. Ok to shower but keep covered and dry. The company will show you how to administer the antibiotics. The antibiotic (rocephin/ceftriaxone) is ONCE DAILY. Start TOMORRROW on 04/13/2020. Take an [id number] probiotic supplement for the next 14 days to prevent diarrhea from the antibiotic. Follow-up - See Dr Botello as scheduled. See Dr Bennett as scheduled. Return to [facility] if - * you have recurrent fevers over 100.4 degrees * you have any worsening redness or pain of either leg but particularly the left leg * you develop severe diarrhea * any other concerns Pending Studies at Discharge: Yes Studies:: repeat blood cultures but thus far negative Stand-Alone Forms: [facility], Smoking Cessation Medications and DC Order Prescriptions: New ceftriaxone 2 gram recon soln 2 gm IV DAILY 12 Days Qty: 12 RF: 0 Continued irbesartan 300 mg tablet 300 mg PO DAILY Qty: 90 RF: 3 clopidogrel 75 mg tablet 75 mg PO DAILY Qty: 90 RF: 2 omeprazole magnesium [Acid Physician Support Coordinator (omeprazole)] 20 mg capsule,delayed release(DR/EC) 20 mg PO DAILY Qty: 90 RF: 3 clindamycin phosphate 1 % gel 1 appln TOP DAILY Qty: 60 RF: 1 (DME) Compression stockings Qty: 2 RF: 0 metformin 1,000 mg tablet 1,000 mg PO BID Qty: 180 RF: 3 furosemide 40 mg tablet 40 mg PO BID Qty: 180 RF: 1 ketoconazole 2 % shampoo 1 appln topical Q OTHER DAY Qty: 120 RF: 3 atorvastatin 40 mg tablet 40 mg PO DAILY Qty: 90 RF: 3 amitriptyline 50 mg tablet 75 mg PO HS Qty: 135 RF: 1 doxycycline monohydrate 100 mg tablet 100 mg PO DAILY Qty: 90 RF: 0 metoprolol tartrate 50 mg tablet 50 mg PO BID Qty: 180 RF: 3 (DME) Silicon GenesisTouch Ultra Blue Test Strip Strip See Dose Instructions .ROUTE .MEDSUPPLY Qty: 300 RF: 1 (DME) lancets [OneTouch Delica Lancets] 33 gauge misc See Rx Instructions .ROUTE .MEDSUPPLY Qty: 300 RF: 1 isosorbide mononitrate 120 mg tablet extended release 24 hr 60 mg PO DAILY Qty: 45 RF: 3 aspirin 81 mg tablet,delayed release (DR/EC) 81 mg PO DAILY RF: 0 insulin NPH isoph U-100 human 100 unit/mL suspension 52 units subcut BID RF: 0 Novolin R Regular U-100 Insuln 100 unit/mL solution 20 units SUBCUT TIDM RF: 0 pregabalin 50 mg capsule 50 mg PO BID Qty: 60 RF: 2 hydrocortisone 2.5 % cream 1 appln topical WK RF: 0 Slow Fe 142 mg (45 mg iron) Tablet Extended Release 142 mg PO DAILY RF: 0 nitroglycerin 0.4 mg tablet, sublingual 0.4 mg SL DIRECTED PRN (Reason: Chest Pain) RF: 0 Discharge Orders: Discharge Order (Routine); Ordered 04/12/20 Ordered By: Justin Damon Admission Data Admit Date/Time: 04/09/20 02:35 Attending Provider: Justin Damon Admit Provider: Pooja Kaur Primary Care Provider: Zbigniew Bennett Other Providers: Pooja Kaur ; [facility] Other Interventions: Discharge Summary Assessment (RN) Last Done: 04/12/20 15:56 DC Date/Time DO NOT enter until pt leaves facility: 04/12/20 17:06 Coding Level of Care Code D/C Day Management >30 mins Diagnoses Septicemia A41.9 Cellulitis of left lower extremity L03.116 Chronic venous insufficiency I87.2 Hypomagnesemia E83.42 Type 2 diabetes mellitus with peripheral neuropathy E11.42 GERD without esophagitis K21.9 Coronary artery disease I25.10 Coronary Disease-Associated Artery/Lesion type: [place] artery [place] vs. transplanted heart: [place] heart Associated angina: without angina Hypertension I10 Hypertension type: essential hypertension Dyslipidemia E78.5 Anemia D64.9 Morbid obesity E66.01
== END 2020-04-12 17:06 | disposition home health service (06) | DRG 862 ==
LOC: ED 23:22 → 2S 04-09 02:35 → SUATTDRO 04-09 02:35 → 2S 04-09 05:07 → 3E 04-10 11:22

== ENCOUNTER 2021-05-18 18:02 | Observation (INO) ==
[2021-05-18] MEDS ORDERED: CEFEPIME 2,000 MG/20 ML VIAL IV STA (18:13)
[2021-05-18] MEDS ORDERED: SODIUM CHLORIDE 0.9% 1000ML 1,000 ML IV SCH (18:15)
[2021-05-18] MEDS ORDERED: ACETAMINOPHEN 500 MG TAB PO STA (18:16)
--- NOTE | 2021-05-18 18:21 | Emergency Department Note ---
Impression & Plan Cellulitis, Anemia, Fever, Hematoma, Failure of outpatient treatment ED Provider Note NAME: MANDEEP TEE AGE: 70 SEX: M : 1950 ARRIVES VIA: Ambulance INFORMANT: [Patient][ems] ED PROVIDER(S): [Killian Patel MD] CHIEF COMPLAINT: Leg pain HISTORY OF PRESENT ILLNESS: The patient is a 70-year-old male who states that several days ago he tripped and fell to his knees. Somehow, he suffered an abrasion to the left proximal anterior leg. He began to develop some erythema. 2 days ago, he saw his doctor's office and was prescribed Keflex for cellulitis. Despite this antibiotic. He is having increased pain and increased erythema. He can walk on the leg but it hurts quite a bit. There is a lot of swelling. He describes the pain as severe at times. He denies cough or congestion or shortness of breath. No fever. No chills. No vomiting or diarrhea. No urinary complaints. The patient is diabetic, he is also on Eliquis. REVIEW OF SYSTEMS: See HPI for pertinent positives and negatives. A total of ten systems were reviewed and were otherwise negative. PMHx/PSHx: See Below SOCIAL HISTORY: See Below. PHYSICAL EXAM: GENERAL: Patient is in no acute distress. HEENT: No acute trauma, normocephalic atraumatic, mucous membranes moist, no nasal congestion, no scleral icterus. NECK: No stridor, no adenopathy, no meningismus, trachea is midline. LUNGS: Clear to auscultation bilaterally, no wheeze, no rhonchi, breath sounds equal. HEART: Without murmurs gallops or rubs, regular rate and rhythm. ABDOMEN: Soft, nontender, bowel sounds positive, no hernias, no peritonitis. EXTREMITIES: No cyanosis. Bilateral pedal edema worse on the left. There is an abrasion to the proximal anterior left leg. From this level and distal there is warmth and erythema basally to the ankle. No drainage. There appears to be some contusion as part of this injury. No evidence for distal left lower extremity neurovascular compromise. NEUROLOGIC: Oriented x 3, no acute motor or sensory deficits, no focal weakness. SKIN: No jaundice, no diaphoresis. DIFFERENTIAL DIAGNOSIS: Sepsis, UTI, pneumonia, metabolic abnormality, cellulitis, failed outpatient treatment, electrolyte abnormalities, cardiac sources, cellulitis, UTI, b acteremia, intracerebral event, toxicologic etiology, neurologic event, as well as other pathologies. EMERGENCY DEPARTMENT COURSE/PROCEDURES: MEDICAL DECISION MAKING: There is no leukocytosis. The patient is anemic with a hemoglobin of 8.8. This is a slight drop for him. He typically runs a hemoglobin of 10-11. There was a normal platelet count. INR slightly elevated, likely from his Eliquis use. Creatinine was elevated but this is baseline. Magnesium low at 1.4. There were a few subtle liver enzyme elevations. Cardiac troponin was not elevated. Procalcitonin level was not elevated. Urinalysis did not show infection. Covid testing was negative. Chest x-ray did not show pneumonia or CHF. Left leg ultrasound show what seems to be a hematoma, no DVT. The patient presents with left leg erythema and warmth. He was febrile. He had been on Keflex for 2 days and has not had improvement. The patient is in need of a hospital stay. He has failed outpatient treatment for his cellulitis. He requires IV antibiotic therapy. His hemoglobin will need to be followed. His magnesium will need to be replaced. I spoke to the patient, I talked to case management. The on-call hospitalist was consulted. Past Med/Surg History Medical History Adrenal gland cyst NODULES Anemia Ascending aortic aneurysm BEING FOLLOWED BY DR. BIANCHI Coronary artery disease Status post PCI to the right coronary artery ([facility]) 2014, [place] Diabetes mellitus, type 2 Diabetic neuropathy GERD (gastroesophageal reflux disease) Hemangioma LIVER X 4 Hiatal hernia History of diverticulitis Hx of gastritis Hyperlipidemia Hypertension Irregular heart rhythm Lung nodule Malignant neoplasm of skin PVD (peripheral vascular disease) Sepsis REASON FOR IV ANTIBIOTIC (IN BLOOD) Sleep apnea CPAP DEVICE Vision problem Surgical History History of cataract surgery RT/LEFT History of colon surgery D/T DIVERTICULITIS History of colonoscopy History of esophagogastroduodenoscopy History of esophagogastroduodenoscopy (EGD) History of heart artery stent X 2 STENTS (2014 WHILE LIVING IN [place]) FOLLOWED BY DR. BIANCHI "REASON FOR PLAVIX" Family History Mother Breast cancer Sister Colorectal cancer Father Hypertension Brother Hypertension Denies family history of Ovarian cancer Prostate cancer Myocardial infarction Social History Smoking Status: Former smoker Age Started Using Tobacco: 18; Age Quit Using Tobacco: 62; Number of Years Since Quit: 7; Second Hand Exposure: No; Do You Dip or Chew Tobacco: No; Tobacco Cessation Education Requested by Patient: No Hx Alcohol Use: No Hx Substance Use: No Preferred Language: Khmer Communication Ability: Effective Visual Impairment: No Limitations Hearing Ability: Normal 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 Beliefs That Will Affect Care: None marital status: Current Living Situation: Spouse Current Living Situation Comment: Lives with current occupational status: retired Other Information That Helps Us Care for You: No Feels Safe at Home: Yes Safety Concerns: Feels Safe At This Time Childhood Exposure to Second-Hand Smoke: Yes Dental Care, Regularly: No Physical Activity Frequency: Does not Exercise Seatbelt Use: always Sunscreen Use: No Assistive Devices: Glasses Allergies Allergies Allergy/AdvReac Type Severity Reaction Status Date / Time Penicillins Allergy Unknown UNSURE OF Verified 05/18/21 19:30 REACTION Home Meds Home Medications Medication Instructions Recorded Confirmed aspirin 81 mg tablet,delayed 81 mg PO QAM tab 04/30/19 05/18/21 release ferrous sulfate 142 mg (45 mg 142 mg PO QAM 07/16/19 05/18/21 iron) tablet,extended release (Slow Fe) nitroglycerin 0.4 mg sublingual 0.4 mg SL DIRECTED PRN 04/09/20 05/18/21 tablet cyanocobalamin (vitamin B-12) 1,000 mcg PO QAM 04/21/20 05/18/21 1,000 mcg tablet clindamycin phosphate 1 % topical 1 applic TOP DAILY PRN gm 05/16/21 05/18/21 gel hydrocortisone 2.5 % topical cream 1 applic TOPICAL WK 05/16/21 05/18/21 insulin NPH isoph U-100 human 100 52 unit SUBCUT BID ml 05/16/21 05/18/21 unit/mL subcutaneous suspension insulin regular human 100 unit/mL 22 unit SUBCUT TIDM ml 05/16/21 05/18/21 injection solution (Novolin R Regular U-100 Insulin) isosorbide mononitrate 120 mg 60 mg PO PM tab 05/16/21 05/18/21 tablet,extended release 24 hr triamcinolone acetonide 0.1 % 1 applic TOPICAL BID PRN g 05/16/21 05/18/21 topical ointment acetaminophen 500 mg tablet 1,000 mg PO Q6H PRN 05/18/21 05/18/21 (Tylenol Extra Strength) atorvastatin 40 mg tablet 40 mg PO PM 05/18/21 05/18/21 doxycycline monohydrate 100 mg 100 mg PO QAM 05/18/21 05/18/21 tablet gabapentin 300 mg capsule 300 - 900 mg PO DIRECTED 05/18/21 05/18/21 irbesartan 300 mg tablet 300 mg PO QAM 05/18/21 05/18/21 omeprazole magnesium 20 mg 20 mg PO QAM 05/18/21 05/18/21 capsule,delayed release (Acid Mercury Cracking Tester (omeprazole)) Previous Rx's Medication Instructions Recorded Compression stockings #2 ea 08/05/19 ketoconazole 2 % shampoo 1 appln TOPICAL Q OTHER DAY #120 ml 11/16/19 blood sugar diagnostic (OneTouch #300 ea 02/24/20 Ultra Blue Test Strip) lancets 33 gauge (OneTouch Delica #300 ea 02/24/20 Lancets) apixaban 5 mg tablet (Eliquis) 5 mg PO BID #60 tab 06/16/20 metformin 1,000 mg tablet 1,000 mg PO BID #180 tab 07/19/20 amitriptyline 50 mg tablet 75 mg PO HS #135 tab 02/03/21 metoprolol tartrate 50 mg tablet 50 mg PO BID #180 tab 02/10/21 furosemide 40 mg tablet 40 mg PO BID #180 tab 04/19/21 cephalexin 500 mg capsule 500 mg PO QID 14 Days #56 cap 05/16/21 Results & Data (ED) Vital Signs Vital Signs - 24 hr 05/18/21 18:16 05/18/21 18:22 05/18/21 18:43 Temperature 38.4 C H Temperature Source Oral Pulse Rate 73 73 Pulse Rate [Apical] 73 70 Pulse Rate from SpO2 Sensor 73 Respiratory Rate 20 23 20 Blood Pressure 135/92 135/92 Blood Pressure Mean 106 106 Blood Pressure Position Lying Pulse Oximetry 99 96 98 Oxygen Delivery Method Room Air Room Air Sepsis Recent Fever Within 48 Hours Yes Sepsis New/Unexplained Change in Mental Status No Sepsis Action Taken by Nursing Physician Notified 05/18/21 18:45 05/18/21 19:00 05/18/21 20:00 Temperature Temperature Source Pulse Rate 71 72 73 Pulse Rate [Apical] Pulse Rate from SpO2 Sensor 71 71 Respiratory Rate 18 23 Blood Pressure 117/55 L 121/70 131/74 Blood Pressure Mean 75 87 93 Blood Pressure Position Pulse Oximetry 96 96 96 Oxygen Delivery Method Room Air Sepsis Recent Fever Within 48 Hours Sepsis New/Unexplained Change in Mental Status Sepsis Action Taken by Snf Medications Current Medication List: was personally reviewed by me Laboratory Data Attestation: I reviewed the patient's lab results. Result diagrams: 05/18/21 18:30 05/18/21 18:30 Lab Results 05/18/21 05/18/21 05/18/21 Range/Units 18:30 18:30 18:30 WBC 5.59 (4.8-10.8) K/uL RBC 3.43 L (4.7-6.1) M/uL Hgb 8.8 L (14.0-18.0) g/dL Hct 28.7 L (42-52) % MCV 83.7 (80-100) fL MCH 25.7 (25-34) pg MCHC 30.7 L (32-36) g/dL RDW Std Deviation 52.1 H (36.4-46.3) fL RDW Coeff of Sho 17.2 H (11.5-14.5) % Plt Count 209 (130-400) K/uL MPV 11.0 H (7.4-10.4) fL Immature Gran % (Auto) 0.4 % Neut % (Auto) 55.0 % Lymph % (Auto) 28.8 % [place] % (Auto) 11.8 % Eos % (Auto) 3.6 % Baso % (Auto) 0.4 % Neut # (Auto) 3.08 (1.4-6.5) K/uL Lymph # (Auto) 1.61 (1.2-3.4) K/uL [place] # (Auto) 0.66 H (0.11-0.59) K/uL Eos # (Auto) 0.20 (0-0.5) K/uL Baso # (Auto) 0.02 (0-0.2) K/uL Immature Gran # (Auto) 0.02 (0.00-0.02) K/uL PT 11.7 (9.0-12.0) Seconds INR 1.2 H (0.9-1.1) APTT 32.2 H (21.0-31.0) Seconds PTT Ratio 1.2 Sodium 137 (136-145) mmol/L Potassium 3.9 (3.5-5.1) mmol/L Chloride 105 (98-107) mmol/L Carbon Dioxide 27 (21-32) mmol/L Anion Gap 5.0 (3-11) BUN 19 H (7-18) mg/dl Creatinine 1.42 H (0.6-1.4) mg/dl Est Cr Clr Drug Dosing 70.3 ml/min Est GFR ( Amer) 58.0 ml/min Est GFR (Non-Af Amer) 50.0 ml/min BUN/Creatinine Ratio 13.5 (10-20) Glucose 133 H (70-99) mg/dl Lactate (0.4-2.0) mmol/L Calcium 8.5 (8.5-10.1) mg/dl Magnesium 1.4 L (1.8-2.4) mg/dl Total Bilirubin 1.2 H (0.2-1) mg/dl AST 26 (15-37) U/L ALT 20 (12-78) U/L Alkaline Phosphatase 134 H (45-117) U/L Troponin I < 0.015 (0-0.045) ng/ml Total Protein 7.2 (6.4-8.2) gm/dl Albumin 3.2 L (3.4-5.0) gm/dl Globulin 4.0 (2.5-4.0) gm/dl Albumin/Globulin Ratio 0.8 L (0.9-2) Procalcitonin (0-0.5) ng/ml COVID-19 Eval Order SARS-CoV-2 (PCR) (Negative) 05/18/21 05/18/21 05/18/21 Range/Units 18:30 18:30 18:30 WBC (4.8-10.8) K/uL RBC (4.7-6.1) M/uL Hgb (14.0-18.0) g/dL Hct (42-52) % MCV (80-100) fL MCH (25-34) pg MCHC (32-36) g/dL RDW Std Deviation (36.4-46.3) fL RDW Coeff of Sho (11.5-14.5) % Plt Count (130-400) K/uL MPV (7.4-10.4) fL Immature Gran % (Auto) % Neut % (Auto) % Lymph % (Auto) % [place] % (Auto) % Eos % (Auto) % Baso % (Auto) % Neut # (Auto) (1.4-6.5) K/uL Lymph # (Auto) (1.2-3.4) K/uL [place] # (Auto) (0.11-0.59) K/uL Eos # (Auto) (0-0.5) K/uL Baso # (Auto) (0-0.2) K/uL Immature Gran # (Auto) (0.00-0.02) K/uL PT (9.0-12.0) Seconds INR (0.9-1.1) APTT (21.0-31.0) Seconds PTT Ratio Sodium (136-145) mmol/L Potassium (3.5-5.1) mmol/L Chloride (98-107) mmol/L Carbon Dioxide (21-32) mmol/L Anion Gap (3-11) BUN (7-18) mg/dl Creatinine (0.6-1.4) mg/dl Est Cr Clr Drug Dosing ml/min Est GFR ( Amer) ml/min Est GFR (Non-Af Amer) ml/min BUN/Creatinine Ratio (10-20) Glucose (70-99) mg/dl Lactate 1.5 (0.4-2.0) mmol/L Calcium (8.5-10.1) mg/dl Magnesium (1.8-2.4) mg/dl Total Bilirubin (0.2-1) mg/dl AST (15-37) U/L ALT (12-78) U/L Alkaline Phosphatase (45-117) U/L Troponin I (0-0.045) ng/ml Total Protein (6.4-8.2) gm/dl Albumin (3.4-5.0) gm/dl Globulin (2.5-4.0) gm/dl Albumin/Globulin Ratio (0.9-2) Procalcitonin 0.11 (0-0.5) ng/ml COVID-19 Eval Order Covid19 at [facility] SARS-CoV-2 (PCR) (Negative) 05/18/21 Range/Units 18:30 WBC (4.8-10.8) K/uL RBC (4.7-6.1) M/uL Hgb (14.0-18.0) g/dL Hct (42-52) % MCV (80-100) fL MCH (25-34) pg MCHC (32-36) g/dL RDW Std Deviation (36.4-46.3) fL RDW Coeff of Sho (11.5-14.5) % Plt Count (130-400) K/uL MPV (7.4-10.4) fL Immature Gran % (Auto) % Neut % (Auto) % Lymph % (Auto) % [place] % (Auto) % Eos % (Auto) % Baso % (Auto) % Neut # (Auto) (1.4-6.5) K/uL Lymph # (Auto) (1.2-3.4) K/uL [place] # (Auto) (0.11-0.59) K/uL Eos # (Auto) (0-0.5) K/uL Baso # (Auto) (0-0.2) K/uL Immature Gran # (Auto) (0.00-0.02) K/uL PT (9.0-12.0) Seconds INR (0.9-1.1) APTT (21.0-31.0) Seconds PTT Ratio Sodium (136-145) mmol/L Potassium (3.5-5.1) mmol/L Chloride (98-107) mmol/L Carbon Dioxide (21-32) mmol/L Anion Gap (3-11) BUN (7-18) mg/dl Creatinine (0.6-1.4) mg/dl Est Cr Clr Drug Dosing ml/min Est GFR ( Amer) ml/min Est GFR (Non-Af Amer) ml/min BUN/Creatinine Ratio (10-20) Glucose (70-99) mg/dl Lactate (0.4-2.0) mmol/L Calcium (8.5-10.1) mg/dl Magnesium (1.8-2.4) mg/dl Total Bilirubin (0.2-1) mg/dl AST (15-37) U/L ALT (12-78) U/L Alkaline Phosphatase (45-117) U/L Troponin I (0-0.045) ng/ml Total Protein (6.4-8.2) gm/dl Albumin (3.4-5.0) gm/dl Globulin (2.5-4.0) gm/dl Albumin/Globulin Ratio (0.9-2) Procalcitonin (0-0.5) ng/ml COVID-19 Eval Order SARS-CoV-2 (PCR) NEGATIVE (Negative) Administered Medications Discontinued Medications Acetaminophen (Acetaminophen 500 Mg Tab) 1,000 mg PO NOW STA Stop: 05/18/21 18:17 Last Admin: 05/18/21 19:14 Dose: 1,000 mg Documented by: [id number] Sodium Chloride (Nss 1000ml) 1,000 mls @ 999 mls/hr IV .[id number] JANIE Stop: 05/18/21 19:15 Last Infusion: 05/18/21 20:16 Dose: 0 mls/hr Documented by: [id number] Admin: 05/18/21 19:15 Dose: 999 mls/hr Documented by: [id number] Cefepime HCl (Maxipime) 2,000 mg in 20 mls @ 5 mls/min IV NOW STA; Protocol Stop: 05/18/21 18:16 Last Admin: 05/18/21 19:14 Dose: 5 mls/min Documented by: [id number] Daptomycin 600 mg/ Syringe 12 mls @ 6 mls/min IV NOW ONE; Protocol Stop: 05/18/21 18:33 Last Admin: 05/18/21 19:38 Dose: 6 mls/min Documented by: [id number] Magnesium Sulfate/Dextrose (Magnesium Sulfate / D5w) 1 gm in 100 mls @ 100 mls/hr IV NOW STA Stop: 05/18/21 20:13 Last Infusion: 05/18/21 21:13 Dose: 0 mls/hr Documented by: [id number] Admin: 05/18/21 19:38 Dose: 100 mls/hr Documented by: [id number] Imaging Data Radiologist's Impression: Chest X-Ray 05/18/21 18:13 XR chest 1V portable CLINICAL HISTORY: SEPSIS COMPARISON STUDY: Chest CT April 02, 2021. FINDINGS: Lung volumes are mildly diminished, unchanged. There is no pneumothorax or pleural effusion. There is no consolidation. Cardiomegaly is unchanged. There is mild interstitial prominence. IMPRESSION: Cardiomegaly. Interstitial prominence favors pulmonary vascular congestion. An infectious process is within the differential. ACT 112: Negative or not required by law. Electronically signed by: Mick Amin M.D. 05/18/2021 8:13 PM Venous Doppler Study 05/18/21 18:13 US venous doppler LE LT CLINICAL HISTORY: swelling, poss dvt or hematoma COMPARISON STUDY: April 11, 2020 FINDINGS: Real-time and color flow Doppler imaging were performed. Flow was seen within the femoral, popliteal and calf veins with no intraluminal thrombus demonstrated. The saphenous vein is patent. There is elongated hypoechoic collection within subcutaneous soft tissue at the lateral aspect of the left calf measuring approximately 9.9 cm in length and shows no internal blood flow, new since prior study and could represent hematoma or seroma. IMPRESSION: No evidence of deep venous thrombosis. ACT 112: Negative or not required by law. The above report was generated using voice recognition software. It may contain grammatical, syntax or spelling errors. Electronically signed by: Roxane Alvarado DO 05/18/2021 8:59 PM Discharge Plan Visit Data Chief Complaint: Fever Stated Complaint: LEG PAIN ED Provider: Killian Patel Discharge Problem: Cellulitis, Anemia, Fever, Hematoma, Failure of outpatient treatment Patient Disposition: Admitted As Inpatient Condition: Fair Discharge Instructions Interventions: ED Discharge Assessment Last Done: 05/18/21 21:15
[2021-05-18] MEDS ORDERED: DAPTOmycin 600 MG in SYRINGE 0 ML IV ONE (18:32)
[2021-05-18 18:47] LABS: Basophils # (auto) 0.02 K/uL (0-0.2); Basophils % (auto) 0.4 %; Eosinophils % (auto) 3.6 %; Hematocrit (blood only) 28.7 % (42-52); Hemoglobin 8.8 g/dL (14.0-18.0); Immature Granulocytes # (auto) 0.02 K/uL (0.00-0.02); Immature Granulocytes % (auto) 0.4 %; Lymphocytes # (auto) 1.61 K/uL (1.2-3.4); Lymphocytes % (auto) 28.8 %; Mean Corpuscular Hemoglobin 25.7 pg (25-34); Mean Corpuscular Hgb Conc 30.7 g/dL (32-36); Mean Corpuscular Volume 83.7 fL (80-100); Monocytes # (auto) 0.66 K/uL (0.11-0.59); Monocytes % (auto) 11.8 %; Neutrophils # (auto) 3.08 K/uL (1.4-6.5); Platelet Count 209 K/uL (130-400); RDW Coefficient of Variation 17.2 % (11.5-14.5); RDW Standard Deviation 52.1 fL (36.4-46.3); Red Blood Count 3.43 M/uL (4.7-6.1); White Blood Count 5.59 K/uL (4.8-10.8)
[2021-05-18 19:03] LABS: INR 1.2 (0.9-1.1); Partial Thromboplastin Ratio 1.2; Partial Thromboplastin Time 32.2 Seconds (21.0-31.0); Prothrombin Time 11.7 Seconds (9.0-12.0)
[2021-05-18 19:11] LABS: Alanine Aminotransferase 20 U/L (12-78); Aspartate Aminotransferase 26 U/L (15-37); BUN Creatinine Ratio 13.5 (10-20); Blood Urea Nitrogen 19 mg/dl (7-18); Calcium 8.5 mg/dl (8.5-10.1); Carbon Dioxide 27 mmol/L (21-32); Chloride 105 mmol/L (98-107); Creatinine Clr Calc Pharmacy 70.3 ml/min; Glucose 133 mg/dl (70-99); Magnesium 1.4 mg/dl (1.8-2.4); Potassium 3.9 mmol/L (3.5-5.1); Sodium 137 mmol/L (136-145)
[2021-05-18] MEDS ORDERED: MAGNESIUM SULFATE / D5W 1 GM/100 ML BAG IV STA (19:14)
[2021-05-18 19:17] LABS: Albumin Globulin Ratio 0.8 (0.9-2); Albumin Level 3.2 gm/dl (3.4-5.0); Alkaline Phosphatase 134 U/L (45-117); Bilirubin,Total 1.2 mg/dl (0.2-1); Total Protein 7.2 gm/dl (6.4-8.2); Troponin I < 0.015 ng/ml (0-0.045)
[2021-05-18 20:01] LABS: Appearance Urine Clear (Clear); Bilirubin Urine Negative (Negative); Blood Urine Negative (Negative); Color Urine Yellow; Glucose Urine UA Negative (Negative); Ketones Urine Negative (Negative); Leukocyte Esterase Urine Negative (Negative); Nitrite Urine Negative (Negative); Protein Urine Negative (Negative); Specific Gravity Urine 1.008 (1.000-1.030); Urobilinogen Urine Negative (Negative)
--- NOTE | 2021-05-18 20:15 | XRay Report ---
XR chest 1V portable CLINICAL HISTORY: SEPSIS COMPARISON STUDY: Chest CT April 02, 2021. FINDINGS: Lung volumes are mildly diminished, unchanged. There is no pneumothorax or pleural effusion . There is no consolidation. Cardiomegaly is unchanged. There is mild interstitial prominence. IMPRESSION: Cardiomegaly. Interstitial prominence favors pulmonary vascular congestion. An infectious process is within the differential. ACT 112: Negative or not required by law. Electronically signed by: Mick Amin M.D. 05/18/2021 8:13 PM
--- NOTE | 2021-05-18 20:27 | History & Physical Report ---
Date of Service May 18, 2021 Assessment & Plan (1) Cellulitis of left lower extremity: Plan: Mr. Lerner is a 70 yo gentleman who is admitted for progressive left lower extremity cellulitis despite. - SIRS criteria not met, patient not septic - given short duration of keflex coverage (< 48 hours), cannot definitively deem progression as failed outpatient management - Dapto + Cefepime administered in the ED. Recommend transition to oral Bactrim plus Keflex on 05/19 (gram + and gram - coverage). Bactrim monotherapy lacks reliable strep coverage. - Although patient is diabetic, he is not on immunosuppressive therapy, no recent hospital stays, does not live in a [place] [facility] care facility, has not been on a ventilator, no chronic catheters or adame - not at a significantly increased risk for pseudomonas. - trend WBC. Follow blood cultures. - risk factors for cellulitis include type II diabetes, obesity, lower extremity edema (2) Anemia: Plan: - Hgb 8.8 on admission, MCV at 83 - baseline Hgb 9-12 - B12 and folate were checked and both WNL in 04/2021 - appears to be a small hematoma on L LE. patient is on anticoagulation and aspirin, increasing propensity to bleed. - recheck H+H q4 - type and screen ordered - blood consent signed and in chart - Transfuse < 8 given hx of CAD - continue home oral iron supplement (3) Hypomagnesemia: Plan: - level 1.4 on admission - 1g replacement given in ED - recheck level in AM (4) Atrial flutter: Plan: - on anticoagulation with eliquis - continue home metoprolol for rate control (5) Chronic kidney disease, stage III (moderate): Plan: - Cr 1.4, at baseline - renally dose meds as appropriate (6) Diabetes mellitus, type 2: Plan: - most recent HbA1c above goal at 8.6 in 03/2021 - patient is on metformin, I question its use given concurrent CKD - pharmacy glycemic consult given high levels of daily insulin use - diabetic diet - continue home ARB and high intensity statin (7) Coronary artery disease: Plan: - continue home atoravastain, ASA, metoprolol and isosorbide mononitrate (8) CHELSEA (obstructive sleep apnea): Plan: - may use home CPAP (9) GERD (gastroesophageal reflux disease): Plan: - continue home omeprazole DVT ppx: on eliquis Diet: Heart Healthy, DM carb consistent Dispo: Med/Surg Code: Full, I discussed with patient History of Present Illness Primary Care Provider: Parth Hamilton DO Mr. Lerner is a 70 yo gentleman with type II diabetes mellitus who presented to the [facility] ED for worsening left lower extremity cellulitis. Three days prior to admission, he tripped while outside walking and feel to his knees. He sustained an abrasion just below the left knee cap. The lower left leg subsequently became red in color and painful. He was seen at his PCPs office the next day and was started on Keflex for cellulitis. Despite taking as directed, Mr. Lerner experienced worsening redness, pain and swelling, which prompted him to come in for further evaluation. Social Hx: Lives at home with his . No eoth use. Non-smoker. In the ED, he was febrile to 38.4. HR was 73 and BP was 131/74. His RR was normal, O2 sat 96 on room air. His WBC was not elevated. Procal not elevated. Lactate not elevated. UA unremarkable. Blood cultures drawn. COVID 19 neg. His Hgb was 8.8, MCV was 83. Platelets were WNL. INR was 1.2. Magnesium was low at 1.4. Electrolytes otherwise WNL. Creatinine was 1.43, BUN at 19. LFTs were WNL. Alk Phos 134, T bili at 1.2. Trop undetectable. CXR showed evidence of pulmonary vascular congestion. Left venous duplex showing no evidence of DVT. He was given a dose of Cefepime and Daptomycin, 1g IV magnesium, 1g of Tylenol. Allergies Allergy/AdvReac Type Severity Reaction Status Date / Time Penicillins Allergy Unknown UNSURE OF Verified 05/18/21 19:30 REACTION Home Medications Medication Instructions Recorded Confirmed Type aspirin 81 mg tablet,delayed 81 mg PO QAM tab 04/30/19 05/18/21 History release ferrous sulfate 142 mg (45 mg 142 mg PO QAM 07/16/19 05/18/21 History iron) tablet,extended release (Slow Fe) Compression stockings #2 ea 08/05/19 05/16/21 Rx ketoconazole 2 % shampoo 1 appln TOPICAL Q OTHER DAY #120 ml 11/16/19 05/18/21 Rx blood sugar diagnostic (OneTouch #300 ea 02/24/20 05/16/21 Rx Ultra Blue Test Strip) lancets 33 gauge (OneTouch Delica #300 ea 02/24/20 05/16/21 Rx Lancets) nitroglycerin 0.4 mg sublingual 0.4 mg SL DIRECTED PRN 04/09/20 05/18/21 History tablet cyanocobalamin (vitamin B-12) 1,000 mcg PO QAM 04/21/20 05/18/21 History 1,000 mcg tablet apixaban 5 mg tablet (Eliquis) 5 mg PO BID #60 tab 06/16/20 05/18/21 Rx metformin 1,000 mg tablet 1,000 mg PO BID #180 tab 07/19/20 05/18/21 Rx amitriptyline 50 mg tablet 75 mg PO HS #135 tab 02/03/21 05/18/21 Rx metoprolol tartrate 50 mg tablet 50 mg PO BID #180 tab 02/10/21 05/18/21 Rx furosemide 40 mg tablet 40 mg PO BID #180 tab 04/19/21 05/18/21 Rx cephalexin 500 mg capsule 500 mg PO QID 14 Days #56 cap 05/16/21 05/18/21 Rx clindamycin phosphate 1 % topical 1 applic TOP DAILY PRN gm 05/16/21 05/18/21 History gel hydrocortisone 2.5 % topical cream 1 applic TOPICAL WK 05/16/21 05/18/21 History insulin NPH isoph U-100 human 100 52 unit SUBCUT BID ml 05/16/21 05/18/21 History unit/mL subcutaneous suspension insulin regular human 100 unit/mL 22 unit SUBCUT TIDM ml 05/16/21 05/18/21 History injection solution (Novolin R Regular U-100 Insulin) isosorbide mononitrate 120 mg 60 mg PO PM tab 05/16/21 05/18/21 History tablet,extended release 24 hr triamcinolone acetonide 0.1 % 1 applic TOPICAL BID PRN g 05/16/21 05/18/21 History topical ointment acetaminophen 500 mg tablet 1,000 mg PO Q6H PRN 05/18/21 05/18/21 History (Tylenol Extra Strength) atorvastatin 40 mg tablet 40 mg PO PM 05/18/21 05/18/21 History doxycycline monohydrate 100 mg 100 mg PO QAM 05/18/21 05/18/21 History tablet gabapentin 300 mg capsule 300 - 900 mg PO DIRECTED 05/18/21 05/18/21 History irbesartan 300 mg tablet 300 mg PO QAM 05/18/21 05/18/21 History omeprazole magnesium 20 mg 20 mg PO QAM 05/18/21 05/18/21 History capsule,delayed release (Acid Patient Registration Rep (omeprazole)) sulfamethoxazole 800 2 tab PO BID 5 Days #20 tab 05/19/21 Rx mg-trimethoprim 160 mg tablet (Bactrim DS) Past Med/Surg History Medical History Adrenal gland cyst NODULES Anemia Ascending aortic aneurysm BEING FOLLOWED BY DR. BIANCHI Coronary artery disease Status post PCI to the right coronary artery ([employer]) 2014, [place] Diabetes mellitus, type 2 Diabetic neuropathy GERD (gastroesophageal reflux disease) Hemangioma LIVER X 4 Hiatal hernia History of diverticulitis Hx of gastritis Hyperlipidemia Hypertension Irregular heart rhythm Lung nodule Malignant neoplasm of skin PVD (peripheral vascular disease) Sepsis REASON FOR IV ANTIBIOTIC (IN BLOOD) Sleep apnea CPAP DEVICE Vision problem Surgical History History of cataract surgery RT/LEFT History of colon surgery D/T DIVERTICULITIS History of colonoscopy History of esophagogastroduodenoscopy History of esophagogastroduodenoscopy (EGD) History of heart artery stent X 2 STENTS (2014 WHILE LIVING IN [place]) FOLLOWED BY DR. BIANCHI "REASON FOR PLAVIX" Family History Mother Breast cancer Sister Colorectal cancer Father Hypertension Brother Hypertension Denies family history of Ovarian cancer Prostate cancer Myocardial infarction Social History Smoking Status: Former smoker Age Started Using Tobacco: 18; Age Quit Using Tobacco: 62; Number of Years Since Quit: 7; Second Hand Exposure: No; Hx Alcohol Use: No Hx Substance Use: No Preferred Language: Welsh Communication Ability: Effective Visual Impairment: No Limitations Hearing Ability: Normal Post Tronic Machine Operator Required: No Beliefs That Will Affect Care: None marital status: Current Living Situation: Spouse Current Living Situation Comment: Lives with current occupational status: retired Feels Safe at Home: Yes Childhood Exposure to Second-Hand Smoke: Yes Dental Care, Regularly: No Physical Activity Frequency: Does not Exercise Seatbelt Use: always Sunscreen Use: No Assistive Devices: Glasses Review of Systems Gastrointestinal: + hematochezia - however this is chronic since colon surgery Physical Exam Constitutional: WD/WN, vitals as above + obese, cooperative and comfortable; no acute distress Eyes: + anicteric sclerae ENMT: external ear and nose normal, oropharynx normal Neck: trachea midline Respiratory: normal respiratory effort, lungs clear to auscultation no cough Cardiovascular: RRR, no murmur, no edema Heart Sounds: normal S1 and normal S2 Extremities: + pedal edema (+1 pitting, b/l ) Gastrointestinal (Abdomen): normal bowel sounds, soft, nontender, no hepatosplenomegaly Musculoskeletal: Head/Neck/Chest: normocephalic and head atraumatic Skin: no rashes, warm and dry + erythema (DESTINI. no warmth. Darker area within center. Demarcated by nursing staff. ) Neurologic: moves all extremities Psychiatric: A+Ox3, euthymic affect Results & Data Results & Data ([facility]) Vital Signs (Past 12 Hours) Vital Signs Temp Pulse Pulse Resp BP Pulse Ox 05/18/21 19:00 72 121/70 96 05/18/21 18:45 71 18 117/55 L 96 05/18/21 18:43 70 20 98 05/18/21 18:22 38.4 C H 73 73 23 135/92 96 05/18/21 18:16 73 20 135/92 99 Supervising Physician Co-Signing Physician Notes Attending addendum: I have physically seen this patient, have supervised the medical residents activities, and agree with the H&P unless as otherwise noted. Assessment and Plan: Cellulitis of left lower extremity/failure of outpatient therapy- Status post daptomycin and cefepime in the ED Transition to oral antibiotics as noted Follow serial laboratories Anemia/left lower extremity hematoma- Hold aspirin and apixaban Follow serial H&H's Hypomagnesemia- Magnesium 1.4 upon admission give oral and IV supplementation Recheck laboratories in a.m. Atrial flutter- Eliquis briefly on hold Continue metoprolol tartrate Remaining orders and notations as noted Resident Activity Tracking Resident Involvement: Resident Care Provided Care Provided: Adult Hospital Medicine (1) Coronary artery disease Associated angina: without angina Coronary Disease-Associated Artery/Lesion type: red devil artery [place] vs. transplanted heart: red devil heart Qualified Code(s): I25.10 - Atherosclerotic heart disease of red devil coronary artery without angina pectoris
--- NOTE | 2021-05-18 21:01 | Ultrasound Report ---
US venous doppler LE LT CLINICAL HISTORY: swelling, poss dvt or hematoma COMPARISON STUDY: April 11, 2020 FINDINGS: Real-time and color flow Doppler imaging were performed. Flow was seen within the femoral, popliteal and calf veins with no intraluminal thrombus demonstrated. The saphenous vein is patent. There is elongated hypoechoic collection within subcutaneous soft tissue at the lateral aspect of the left calf measuring approximately 9.9 cm in length and shows no internal blood flow, new since prior study and could represent hematoma or seroma. IMPRESSION: No evidence of deep venous thrombosis. ACT 112: Negative or not required by law. The above report was generated using voice recognition software. It may contain grammatical, syntax o r spelling errors. Electronically signed by: Roxane Alvarado DO 05/18/2021 8:59 PM
[2021-05-18] MEDS ORDERED: ONDANSETRON INJ 2 MG/ML 2 ML VIAL IV PRN (21:41)
[2021-05-18] MEDS ORDERED: DEXTROSE 50% 50 ML SYRINGE IV PRN (21:41)
[2021-05-18] MEDS ORDERED: metFORMIN HCL 500 MG TAB PO SCH (21:41)
[2021-05-18] MEDS ORDERED: GLUCOSE 40% GEL 15 GM TUBE PO PRN (21:41)
[2021-05-18] MEDS ORDERED: CARBOHYDRATES FOR HYPOGLYCEMIA PO PRN (21:41)
[2021-05-18] MEDS ORDERED: POLYETHYLENE (MIRALAX) 17 GM PACK PO PRN (21:41)
[2021-05-18] MEDS ORDERED: GLUCAGON FOR INJ 1 MG VIAL SQ PRN (21:41)
[2021-05-18] MEDS ORDERED: GLUCOSE 10 TABS/TUBE PO PRN (21:41)
[2021-05-18] MEDS ORDERED: ISOSORBIDE MONO EXTENDED REL 60 MG TABCR PO SCH (22:00)
[2021-05-18] MEDS ORDERED: ATORVASTATIN 40 MG TAB PO SCH (22:00)
[2021-05-18] MEDS ORDERED: AMITRIPTYLINE HCL 25 MG TAB PO SCH (22:00)
[2021-05-18] MEDS ORDERED: PHARMACY GLYCEMIC MGMT CONSULT PRN (22:13)
[2021-05-18] MEDS ORDERED: MoRPHine SULFATE 2 MG/ML CARP IV STA (22:19)
[2021-05-18] MEDS: FUROSEMIDE 40 MG TAB PO SCH (22:51)
[2021-05-18] MEDS: METOPROLOL TARTRATE 50 MG TAB PO SCH (22:52)
[2021-05-18] MEDS: APIXABAN 5 MG TABLET PO SCH (22:52)
[2021-05-18] MEDS ORDERED: INSULIN HUMAN NPH SC SCH (23:00)
[2021-05-18] MEDS: INSULIN ASPART 100 UNITS/ML 3 ML PEN SC SCH (23:00)
[2021-05-18] MEDS ORDERED: INSULIN HUMAN NPH SC ONE (23:00)
--- NOTE | 2021-05-18 23:11 | Pharmacy Report ---
Pharmacy Glycemic Short Note 2 - Date of Service May 18, 2021 - Glycemic Short BSG Results (Last 24 hours): 05/18/21 05/18/21 18:30 22:47 Glucose 133 H POC Glucose 94 OUTPATIENT ANTIDIABETIC REGIMEN: * NPH insulin 52 units SC BIDM * Novolin R 22 units SC TID * Metformin 1000 mg PO BIDM * HbA1c: 8.6% (04/06/21) ASSESSMENT: * JOSE G is a 70 year old male admitted for worsening LLE cellulitis * BSG of 133 mg/dL on presentation, 94 mg/dL on recheck to the floor * RN confirmed that patient took AM insulin, but did not take second dose of NPH * Patient has meal tray late this evening - planned on covering with reduced NPH, but patient refused insulin this evening. At this point, will just reassess BSG in AM. PLAN FOR INPATIENT GLYCEMIC CONTROL: * Hold outpatient oral diabetes medications (i.e. metformin) * Basal insulin * Reassess in AM * Bolus insulin * NovoLog per scale ACHS or Q6hrs while NPO * Goal Range: Low 110 mg/dL - High 140 mg/dL * Correction Factor: 10 mg/dL/unit * Nutritional / Prandial insulin per carb ratio of 1 unit per 4 grams CHO consumed PLAN FOR DISCHARGE: * tbd
[2021-05-19 00:42] LABS: Hematocrit (blood only) 27.9 % (42-52); Hemoglobin 8.7 g/dL (14.0-18.0)
[2021-05-19] MEDS: ACETAMINOPHEN 325 MG TAB PO PRN ×2 (03:00→07:33)
[2021-05-19] MEDS ORDERED: INSULIN ASPART 100 UNITS/ML 3 ML PEN SC SCH (03:00)
[2021-05-19 05:49] LABS: Basophils # (auto) 0.01 K/uL (0-0.2); Basophils % (auto) 0.2 %; Eosinophils # (auto) 0.18 K/uL (0-0.5); Eosinophils % (auto) 3.8 %; Hematocrit (blood only) 25.6 % (42-52); Hemoglobin 7.9 g/dL (14.0-18.0); Immature Granulocytes # (auto) 0.01 K/uL (0.00-0.02); Immature Granulocytes % (auto) 0.2 %; Lymphocytes # (auto) 1.33 K/uL (1.2-3.4); Lymphocytes % (auto) 28.4 %; Mean Corpuscular Hemoglobin 25.9 pg (25-34); Mean Corpuscular Hgb Conc 30.9 g/dL (32-36); Mean Corpuscular Volume 83.9 fL (80-100); Monocytes # (auto) 0.58 K/uL (0.11-0.59); Monocytes % (auto) 12.4 %; Neutrophils # (auto) 2.58 K/uL (1.4-6.5); Platelet Count 205 K/uL (130-400); RDW Standard Deviation 52.7 fL (36.4-46.3); Red Blood Count 3.05 M/uL (4.7-6.1); White Blood Count 4.69 K/uL (4.8-10.8)
[2021-05-19 06:16] LABS: Ovalocytes 1+
[2021-05-19 06:22] LABS: BUN Creatinine Ratio 14.4 (10-20); Creatinine Clr Calc Pharmacy 79.2 ml/min; Est GFR (African American) 67.7 ml/min; Est GFR (Non-African American) 58.4 ml/min; Magnesium 1.5 mg/dl (1.8-2.4); Potassium 3.7 mmol/L (3.5-5.1)
[2021-05-19 06:24] LABS: Albumin Globulin Ratio 0.9 (0.9-2); Bilirubin,Total 1.2 mg/dl (0.2-1); Globulin 3.5 gm/dl (2.5-4.0); Total Protein 6.5 gm/dl (6.4-8.2)
[2021-05-19] MEDS: cephALEXin 500 MG CAP PO SCH ×2 (07:34→13:09)
[2021-05-19] MEDS: APIXABAN 5 MG TABLET PO SCH (07:35)
[2021-05-19] MEDS: METOPROLOL TARTRATE 50 MG TAB PO SCH (07:35)
[2021-05-19] MEDS: FUROSEMIDE 40 MG TAB PO SCH (07:35)
[2021-05-19] MEDS ORDERED: INSULIN HUMAN NPH SC SCH (08:00)
[2021-05-19] MEDS ORDERED: NovoLIN-R INSULIN PER UNIT CHARGE SQ SCH (08:00)
[2021-05-19] MEDS ORDERED: SODIUM CHLORIDE 0.9% 250 ML IV PRN ×2 (08:08→09:32)
[2021-05-19] MEDS ORDERED: PANTOprazole 40 MG TAB PO SCH (09:00)
[2021-05-19] MEDS ORDERED: FERROUS SULFATE 325 MG TAB PO SCH (09:00)
[2021-05-19] MEDS ORDERED: ASPIRIN 81 MG ECTAB PO SCH (09:00)
[2021-05-19] MEDS ORDERED: GABAPENTIN 300 MG CAP PO SCH ×2 (09:00→21:00)
[2021-05-19] MEDS ORDERED: SULFAMETHOXAZOLE/TRIMETHOPRIM DS 800/160MG TAB PO SCH (09:00)
[2021-05-19] MEDS ORDERED: IRBESARTAN 150 MG TAB PO SCH (09:00)
[2021-05-19] MEDS: INSULIN ASPART 100 UNITS/ML 3 ML PEN SC SCH ×2 (09:35→13:06)
--- NOTE | 2021-05-19 12:49 | Pharmacy Report ---
Pharmacy Glycemic Short Note 2 - Date of Service May 19, 2021 - Glycemic Short BSG Results (Last 24 hours): 05/18/21 05/18/21 05/19/21 18:30 22:47 05:17 Glucose 133 H 110 H POC Glucose 94 05/19/21 05/19/21 07:41 11:45 Glucose POC Glucose 157 H 212 H OUTPATIENT ANTIDIABETIC REGIMEN: * NPH insulin 52 units SC BIDM * Novolin R 22 units SC TID * Metformin 1000 mg PO BIDM * HbA1c: 8.6% (04/06/21) ASSESSMENT: 05/19/21 * Fasting blood sugar 157mg/dl, start basal at reduced dose, as patient did not require his PM dose yesterday * Continue CF/CR at this time 05/18/21 * JOSE G is a 70 year old male admitted for worsening LLE cellulitis * BSG of 133 mg/dL on presentation, 94 mg/dL on recheck to the floor * RN confirmed that patient took AM insulin, but did not take second dose of NPH * Patient has meal tray late this evening - planned on covering with reduced NPH, but patient refused insulin this evening. At this point, will just reassess BSG in AM. PLAN FOR INPATIENT GLYCEMIC CONTROL: * Hold outpatient oral diabetes medications (i.e. metformin) * Basal insulin * NPH 40 units SQ BID with meals * Bolus insulin * NovoLog per scale ACHS or Q6hrs while NPO * Goal Range: Low 110 mg/dL - High 140 mg/dL * Correction Factor: 10 mg/dL/unit * Nutritional / Prandial insulin per carb ratio of 1 unit per 4 grams CHO consumed PLAN FOR DISCHARGE: * tbd
--- NOTE | 2021-05-19 13:09 | Discharge Summary ---
Date of Service May 19, 2021 Admission HPI Per Admitting Provider Mr. Lerner is a 70 yo gentleman with type II diabetes mellitus who presented to the [facility] ED for worsening left lower extremity cellulitis. Three days prior to admission, he tripped while outside walking and feel to his knees. He sustained an abrasion just below the left knee cap. The lower left leg subsequently became red in color and painful. He was seen at his PCPs office the next day and was started on Keflex for cellulitis. Despite taking as directed, Mr. Lerner experienced worsening redness, pain and swelling, which prompted him to come in for further evaluation. Social Hx: Lives at home with his . No eoth use. Non-smoker. In the ED, he was febrile to 38.4. HR was 73 and BP was 131/74. His RR was normal, O2 sat 96 on room air. His WBC was not elevated. Procal not elevated. Lactate not elevated. UA unremarkable. Blood cultures drawn. COVID 19 neg. His Hgb was 8.8, MCV was 83. Platelets were WNL. INR was 1.2. Magnesium was low at 1.4. Electrolytes otherwise WNL. Creatinine was 1.43, BUN at 19. LFTs were WNL. Alk Phos 134, T bili at 1.2. Trop undetectable. CXR showed evidence of pulmonary vascular congestion. Left venous duplex showing no evidence of DVT. He was given a dose of Cefepime and Daptomycin, 1g IV magnesium, 1g of Tylenol. Admission Exam Per Admitting Provider Constitutional: WD/WN, vitals as above + obese, cooperative and comfortable; no acute distress Eyes: + anicteric sclerae ENMT: external ear and nose normal, oropharynx normal Neck: trachea midline Respiratory: normal respiratory effort, lungs clear to auscultation no cough Cardiovascular: RRR, no murmur, no edema Heart Sounds: normal S1 and normal S2 Extremities: + pedal edema (+1 pitting, b/l ) Gastrointestinal (Abdomen): normal bowel sounds, soft, nontender, no hepatosplenomegaly Musculoskeletal: Head/Neck/Chest: normocephalic and head atraumatic Skin: no rashes, warm and dry + erythema (DESTINI. no warmth. Darker area within center. Demarcated by nursing staff. ) Neurologic: moves all extremities Psychiatric: A+Ox3, euthymic affect Principal Diagnosis Cellulitis Discharge Exam Constitutional WD/WN, vitals as above + obese, cooperative and comfortable; no acute distress Eyes + anicteric sclerae ENMT external ear and nose normal, oropharynx normal Neck trachea midline Respiratory normal respiratory effort, lungs clear to auscultation no cough Cardiovascular RRR, no murmur, no edema Heart Sounds: normal S1 and normal S2 Extremities: + pedal edema (+1 pitting, b/l ) Gastrointestinal (Abdomen) normal bowel sounds, soft, nontender, no hepatosplenomegaly Musculoskeletal Head/Neck/Chest: normocephalic and head atraumatic Skin no rashes, warm and dry + erythema (LLE anterior and posterior surface, some warmth, no drainage, + hematoma) Neurologic moves all extremities Psychiatric A+Ox3, euthymic affect Discharge Data Allergies Allergy/AdvReac Type Severity Reaction Status Date / Time Penicillins Allergy Unknown UNSURE OF Verified 05/18/21 19:30 REACTION Consultations 05/18/21 19:19 ED Decision to Admit Stat Ordered Studies 05/18/21 18:13 US venous doppler LE LT Stat Hospital Course (1) Cellulitis of left lower extremity: 70 yo M with PMH CAD, DM2, CKD3, atrial flutter admitted for progressive left lower extremity cellulitis, hospitalized 05/18 to 05/19. 1) Cellulitis -Pt was hemodynamically stable, aseptic, afebrile during stay. Treated with IV daptomycin/cefepime, noted improvement in pain symptoms during hospital stay. Discharged with 5 day course of oral Bactrim, also instructed to continue Keflex as prescribed for dual MRSA/staph/strep coverage. Able to ambulate with minimal difficulty during hospital stay. 2) Anemia -Pt had Hgb 8.8 on admission, baseline Hgb reportedly 9-12. Noted to have hematoma below L knee consistent with fall. Hgb dropped to 7.9 during stay although minimally symptomatic. Received 1 unit pRBC given minor symptoms but with previous history of CAD and increased bleeding risk due to anticoagulant/aspirin therapy. CBC to be checked outpatient at follow-up. 3) Hypomagnesemia -Mg 1.4 on admission but asymptomatic, attributed to CKD3 and acute illness response. 1g IV replacement given in ED, improved to 1.5. BMP to be checked outpatient at follow-up (2) Anemia: (3) Hypomagnesemia: (4) Atrial flutter: (5) Chronic kidney disease, stage III (moderate): (6) Diabetes mellitus, type 2: (7) Coronary artery disease: (8) CHELSEA (obstructive sleep apnea): (9) GERD (gastroesophageal reflux disease): Total Time Total Time Spent Total Time Spent (In Minutes): <30 Discharge Plan Discharge Items Patient Disposition: Home - Self-Care Reason For Visit: CELLULITIS Discharge Diagnosis: Cellulitis Condition on Discharge: Fair Activity: Per Instructions section Non-emergency contact: Primary Care Provider Call non-emergency contact if: you have any medication questions, your symptoms worsen, your pain is not controlled, your pain is worsening, your pain is concerning for you, you have a fever, your wound has increased redness, your wound has increased drainage and your wound pain has increased Follow-up/Referrals: Parth Hamilton DO [Primary Care Provider] - 05/30/21 11:30 am Diet: Carb Consistent or DM2, Low Fat and Low Sodium (2gm) Addtl Attending Provider Instructions: You were admitted to the hospital for cellulitis. Cellulitis -You were diagnosed with cellulitis, a bacterial infection of the skin and soft tissue underneath. The bacteria likely infected your skin after your fall, which resulted in abrasion of your skin that bacteria entered through. This is why you had significant pain with redness, warmth and swelling. You were treated with antibiotics that are helping to kill the bacteria. Make sure to keep the affected area away from any dirt or irritants. You should also regularly wash the affected area with hot water and soap to keep it clean and prevent bacteria from possibly growing. This cellulitis should resolve within a few days as you continue taking your antibiotics. While the red rash may remain for a bit longer, the pain disappearing will mean you have been successfully treated. A discharge summary will be sent to your primary care physician to ensure continuity of care. Please bring this discharge summary with you to your next office appointment so that your provider can review it at that time. Follow-up appointments: Make a follow-up appointment with your PCP within the next week. It is very important that you follow up with them shortly after discharge from the hospital. Medications: Your medication list has been reviewed and reconciled upon discharge to ensure accuracy and continuity of care. An updated list of all your medications is included with your hospital discharge paperwork. Please review this list closely, and make note of any changes. We sent a medication called Bactrim to the [facility] pharmacy. You will take 2 Bactrim tablets twice a day (total of 4 per day) for 5 days. This will treat the remainder of your cellulitis. Additionally, you should continue taking the Keflex you were prescribed by your PCP. The Bactrim and Keflex together will kill the bacteria likely responsible for your infection. Take your medications as instructed; do not skip a dose of your medicines. Make sure all of your doctors know every medicine you are taking (including bfyw-xmw-[id number] medicines, vitamins, and supplements). Call your primary care provider before taking any new medicines (including lysd-cjs-tpnskqq medicines, vitamins, and supplements), because some of these may interact with your current medications, or may make your symptoms worse. Tell your primary care provider if you cannot afford your medications. CONTACT YOUR PRIMARY CARE PROVIDER if you experience any of the following: Fever Increased leg pain Bleeding or pus from the affected area Chills Night sweats Difficulty following your treatment plan, or difficulty taking medications CALL 911 OR GO TO THE EMERGENCY DEPARTMENT if you experience any of the following: Sudden, severe abdominal pain or nausea/vomiting Severe chest pain, or chest pain that radiates (moves) to your jaw or arm Sudden, severe shortness of breath or difficulty breathing Thank you for allowing us to participate in your care. Pending Studies at Discharge: Yes Studies:: Blood cultures Stand-Alone Forms: [email or web address], Smoking Cessation Medications and DC Order Prescriptions: New sulfamethoxazole-trimethoprim [Bactrim DS] 800-160 mg tablet 2 tab PO BID 5 Days Qty: 20 RF: 0 Continued (DME) Compression stockings Qty: 2 RF: 0 ketoconazole 2 % shampoo 1 appln topical Q OTHER DAY Qty: 120 RF: 3 (DME) OneTouch Ultra Blue Test Strip Strip See Dose Instructions .ROUTE .MEDSUPPLY Qty: 300 RF: 1 (DME) lancets [OneTouch Delica Lancets] 33 gauge misc See Rx Instructions .ROUTE .MEDSUPPLY Qty: 300 RF: 1 metformin 1,000 mg tablet 1,000 mg PO BID Qty: 180 RF: 3 amitriptyline 50 mg tablet 75 mg PO HS Qty: 135 RF: 1 metoprolol tartrate 50 mg tablet 50 mg PO BID Qty: 180 RF: 3 furosemide 40 mg tablet 40 mg PO BID Qty: 180 RF: 1 aspirin 81 mg tablet,delayed release (DR/EC) 81 mg PO QAM RF: 0 insulin NPH isoph U-100 human 100 unit/mL suspension 52 unit subcut BID RF: 0 Novolin R Regular U-100 Insuln 100 unit/mL solution 22 unit SUBCUT TIDM RF: 0 Eliquis 5 mg tablet 5 mg PO BID Qty: 60 RF: 11 triamcinolone acetonide 0.1 % ointment 1 applic topical BID PRN (Reason: Skin Irritation) RF: 0 clindamycin phosphate 1 % gel 1 applic TOP DAILY PRN (Reason: Unknown) RF: 0 isosorbide mononitrate 120 mg tablet extended release 24 hr 60 mg PO PM RF: 0 cephalexin 500 mg capsule 500 mg PO QID 14 Days Qty: 56 RF: 0 Slow Fe 142 mg (45 mg iron) Tablet Extended Release 142 mg PO QAM RF: 0 hydrocortisone 2.5 % cream 1 applic topical WK RF: 0 cyanocobalamin (vitamin B-12) 1,000 mcg Tablet 1,000 mcg PO QAM RF: 0 nitroglycerin 0.4 mg tablet, sublingual 0.4 mg SL DIRECTED PRN (Reason: Chest Pain) RF: 0 atorvastatin 40 mg tablet 40 mg PO PM RF: 0 doxycycline monohydrate 100 mg tablet 100 mg PO QAM RF: 0 gabapentin 300 mg capsule 300 - 900 mg PO DIRECTED RF: 0 irbesartan 300 mg tablet 300 mg PO QAM RF: 0 omeprazole magnesium [Ac[employer] (omeprazole)] 20 mg capsule,delayed release(DR/EC) 20 mg PO QAM RF: 0 acetaminophen [Tylenol Extra Strength] 500 mg Tablet 1,000 mg PO Q6H PRN (Reason: Pain) RF: 0 Discharge Orders: Discharge Order (Routine); Ordered 05/19/21 Ordered By: Leonides Chappell Admission Data Admit Date/Time: 05/18/21 20:11 Attending Provider: Ab Lan Admit Provider: Eugenie Orellana Primary Care Provider: Parth Hamilton Other Providers: Tra Jacobs Other Interventions: Discharge Summary Assessment (RN) Last Done: 05/19/21 13:30 Supervising Physician Co-Signing Physician Notes I personally examined the patient and verified all islas points of history and exam, discussed case, and agree with decision making with Dr Chappell. feeling better wants to go home. vitals noted HEENT normocephalic atraumatic mucous membranes moist. Breathing unlabored no accessory muscle use good effort. Skin shows no rashes no pallor or icterus. Left lower extremity with a area on the anterior lion of tender erythema, however it is somewhat purplish red, no crepitus no exudate no tracking beyond the previously outlined margins (if anything it has receded by about 25 to 30%). He has bilateral lower extremity venous stasis type changes. Lower extremity cellulitisimprovinghome on Keflex and Bactrim. Basic metabolic panel next week. Clinical follow-up next week. Discussed with the patient given his venous stasis, that the actual resolution of discoloration and swelling may take far longer than the resolution of the infection. Anemiamultifactorial. Was transfused here. Outpatient follow-up and work-up. Otherwise as above Resident Activity Tracking Resident Involvement: Resident Care Provided Care Provided: Adult Hospital Medicine
[2021-05-19] MEDS ORDERED: DAPTOmycin 425 MG in SYRINGE 0 ML IV SCH (19:00)
--- NOTE | 2021-05-19 19:12 | Billing Data ---
Date of Service May 19, 2021 Coding Level of Care Code D/C DAY MANAGEMENT <30 MINS
--- NOTE | 2021-05-20 05:29 | Billing Data ---
Date of Service May 20, 2021 Coding Level of Care Code 16371 Initial Inpt Care Lvl 3
--- NOTE | 2021-05-20 06:22 | Electrocardiogram Report ---
Test Reason : Blood Pressure : / mmHG Vent. Rate : 072 BPM Atrial Rate : 072 BPM P-R Int : 216 ms QRS Dur : 112 ms QT Int : 378 ms P-R-T Axes : 000 -30 037 degrees QTc Int : 413 ms Poor data quality, interpretation may be adversely affected Sinus rhythm with 1st degree A-V block Left axis deviation Abnormal ECG When compared with ECG of 09-APR-2020 00:14, No significant change was found Confirmed by Brennan Rios ([id number]) on 05/20/2021 6:22:14 AM Referred By: REFERRED SELF Confirmed By:Brennan Rios
== END 2021-05-19 14:41 | disposition home or self-care (01) ==
LOC: ED 18:02 → SUATTDRO 20:11 → INTOOBSV 20:11 → 3N 20:11